=== PATIENT | male | born 1950 | race Caucasian/White ===

== ENCOUNTER 2022-02-16 12:29 | Inpatient (IN) ==
[2022-02-16 13:05] LABS: PO2 Arterial 68 mmHg (80-100)
[2022-02-16 13:08] LABS: PCO2 Arterial 84 mmHg (35-45)
[2022-02-16 13:11] LABS: Activated Partial Thrombo Time 38.6 seconds (26.0-38.0); INR 1.58 (0.86-1.15)
[2022-02-16 13:22] LABS: ABS Basophils 0.1 10^3/ul (0-0.2); ABS Eosinophils 0.1 10^3/ul (0-0.6); ABS Lymphocytes 1.5 10^3/ul (1.0-4.8); ABS Monocytes 0.6 10^3/ul (0-0.8); Eosinophil % 0.8 %; Hematocrit 37 % (42-52); Hemoglobin 11.5 g/dL (14.0-18.0); Mean Corpuscular HGB Conc 31 g/dL (31-36); Mean Corpuscular Hemoglobin 29 pg (27-31); Mean Corpuscular Volume 95 fL (80-94); Mean Platelet Volume 9.6 fL (7.4-10.4); Platelet Count 248 10^3/uL (150-450); Red Blood Count 3.96 10^6 /uL (4.18-5.48); Red Cell Distribution Width 18 % (10-15); White Blood Count 16.2 10^3/uL (3.5-10.8)
[2022-02-16 13:40] LABS: Albumin/Globulin Ratio 1.1 (1-3); C Reactive Protein 43.87 mg/L (<8.01); Calcium 8.8 mg/dL (8.6-10.3); Globulin 3.5 g/dL (2-4); Total Bilirubin 0.8 mg/dL (0.2-1.0); Total Protein 7.5 g/dL (6.4-8.9); eGFR CKD-EPI 54.9 (>60)
[2022-02-16] MEDS ORDERED: Iodixanol (CONTRAST) 320 MG/ML 100 ML SDV IV ONE (14:20)
[2022-02-16 14:23] LABS: High Sensitivity Troponin 1 Hr 51 pg/mL (<20)
[2022-02-16] MEDS ORDERED: Furosemide 40 mg/4 ml IV VIAL IV ONE (14:45)
[2022-02-16] MEDS ORDERED: Albuterol HFA INHALER 8 gm MDI INH PRN (16:07)
[2022-02-16] MEDS ORDERED: Albuterol 2.5mg/3 ml (0.083%) NEB.SOLN INH PRN (16:07)
[2022-02-16 17:02] LABS: Urine Appearance Cloudy; Urine Bilirubin Negative (Negative); Urine Blood 1+ (Negative); Urine Color Yellow; Urine Glucose Negative (Negative); Urine Ketones Negative (Negative); Urine Nitrite Negative (Negative); Urine Protein 2+(100 mg/dL) (Negative); Urine Specific Gravity 1.028 (1.002-1.030); Urine Urobilinogen Negative (Negative)
[2022-02-16 17:08] LABS: Urine Bacteria Absent (Absent); Urine Red Blood Cell 3+(>10/hpf) (Absent); Urine Squamous Epithelial Cell Present (Absent); Urine White Blood Cell 3+(>20/hpf) (Absent)
[2022-02-16] MEDS: cefTRIAXone 1 gm/50 mL D5W 1 GM/50 ML BAG IV SCH (18:08)
[2022-02-16] MEDS: Azithromycin 500 mg/250 ml NS 500 MG/250 ML BAG IVPB SCH (18:08)
[2022-02-16] MEDS ORDERED: Dextrose 50% Syringe 50 ml 25 GM/50 ML SYRINGE IV PUSH PRN (18:43)
[2022-02-16] MEDS: Mometasone/Formoter 200/5 MDI INH SCH (19:49)
[2022-02-16] MEDS ORDERED: Furosemide 40 mg/4 ml IV VIAL IV SCH (21:00)
[2022-02-17 04:05] LABS: Hematocrit 31 % (42-52); Hemoglobin 9.8 g/dL (14.0-18.0); Mean Corpuscular HGB Conc 32 g/dL (31-36); Mean Corpuscular Hemoglobin 29 pg (27-31); Mean Corpuscular Volume 92 fL (80-94); Mean Platelet Volume 8.7 fL (7.4-10.4); Platelet Count 191 10^3/uL (150-450); Red Blood Count 3.34 10^6 /uL (4.18-5.48); Red Cell Distribution Width 17 % (10-15); White Blood Count 11.6 10^3/uL (3.5-10.8)
[2022-02-17 04:42] LABS: Calcium 8.2 mg/dL (8.6-10.3); Magnesium 2.1 mg/dL (1.9-2.7); Potassium 4.3 mmol/L (3.5-5.0); eGFR CKD-EPI 65.5 (>60)
[2022-02-17] MEDS: Mometasone/Formoter 200/5 MDI INH SCH ×2 (07:37→18:56)
[2022-02-17] MEDS ORDERED: Perflutren Lipid Microsphere 3 ML VIAL ONE (08:37)
[2022-02-17] MEDS ORDERED: Furosemide 40 mg/4 ml IV VIAL IV ONE (11:17)
[2022-02-17] MEDS: cefTRIAXone 1 gm/50 mL D5W 1 GM/50 ML BAG IV SCH (17:38)
[2022-02-17] MEDS: Azithromycin 500 mg/250 ml NS 500 MG/250 ML BAG IVPB SCH (17:38)
[2022-02-18 05:53] LABS: Hematocrit 33 % (42-52); Hemoglobin 10.4 g/dL (14.0-18.0); Mean Corpuscular HGB Conc 32 g/dL (31-36); Mean Corpuscular Hemoglobin 30 pg (27-31); Mean Corpuscular Volume 94 fL (80-94); Mean Platelet Volume 9.1 fL (7.4-10.4); Platelet Count 208 10^3/uL (150-450); Red Blood Count 3.54 10^6 /uL (4.18-5.48); Red Cell Distribution Width 17 % (10-15); White Blood Count 10.4 10^3/uL (3.5-10.8)
[2022-02-18 06:45] LABS: Blood Urea Nitrogen 16 mg/dL (6-24); CO2 Carbon Dioxide 36 mmol/L (22-32); Calcium 7.6 mg/dL (8.6-10.3); Chloride 99 mmol/L (101-111); Glucose 93 mg/dL (70-100); Sodium 140 mmol/L (135-145); eGFR CKD-EPI 94.1 (>60)
[2022-02-18 07:30] LABS: Anion Gap 5 mmol/L (2-11)
[2022-02-18] MEDS: Mometasone/Formoter 200/5 MDI INH SCH (08:01)
[2022-02-18] MEDS ORDERED: Furosemide 40 mg/4 ml IV VIAL IV ONE (08:35)
[2022-02-18 17:45] LABS: Potassium Redraw 4.1 mmol/L (3.5-5.0)
[2022-02-18] MEDS: Azithromycin 500 mg/250 ml NS 500 MG/250 ML BAG IVPB SCH (17:55)
[2022-02-18] MEDS: cefTRIAXone 1 gm/50 mL D5W 1 GM/50 ML BAG IV SCH (17:58)
[2022-02-19 04:53] LABS: Hematocrit 34 % (42-52); Hemoglobin 10.8 g/dL (14.0-18.0); Mean Corpuscular HGB Conc 32 g/dL (31-36); Mean Corpuscular Hemoglobin 30 pg (27-31); Mean Corpuscular Volume 94 fL (80-94); Mean Platelet Volume 9.1 fL (7.4-10.4); Platelet Count 213 10^3/uL (150-450); Red Blood Count 3.64 10^6 /uL (4.18-5.48); Red Cell Distribution Width 18 % (10-15); White Blood Count 11.4 10^3/uL (3.5-10.8)
[2022-02-19 05:26] LABS: Calcium 8.5 mg/dL (8.6-10.3); Magnesium 2.1 mg/dL (1.9-2.7); Potassium 4.1 mmol/L (3.5-5.0); eGFR CKD-EPI 78.6 (>60)
[2022-02-19] MEDS ORDERED: medroxyPROGESTERone ACETATE 150 MG/ML VIAL IM ONE (09:04)
[2022-02-19] MEDS ORDERED: Furosemide 100 mg/10 ml IV VIAL IV ONE (09:36)
[2022-02-19] MEDS ORDERED: Furosemide 100 mg/10 ml IV VIAL ONE (10:00)
[2022-02-19] MEDS ORDERED: medroxyPROGESTERone ACETATE 150 MG/ML VIAL IM SCH (10:00)
[2022-02-19] MEDS ORDERED: Vancomycin per Pharmacy 1 EA NOTE FOLLOW UP PRN (10:04)
[2022-02-19] MEDS ORDERED: Vancomycin 2,000 MG in NS 0.9% 500 ml BAG 500 ML IVPB ONE (10:15)
[2022-02-19] MEDS: cefTRIAXone 1 gm/50 mL D5W 1 GM/50 ML BAG IV SCH (17:48)
[2022-02-19] MEDS ORDERED: Rocuronium 50 mg VIAL 10 mg/ml 5 ml VIAL (50 mg) ONE (18:14)
[2022-02-19] MEDS ORDERED: Succinylcholine 200 mg VIAL 20 mg/ml 10 ml VIAL (200 mg) ONE (18:14)
[2022-02-19] MEDS ORDERED: Norepinephrine 16MCG/ML BAGD5W 4,000 MCG/250 ML BAG IV ONE (18:20)
[2022-02-19] MEDS ORDERED: Midazolam 10 mg/10 ml VIAL 1 mg/ml 10 ml VIAL (10 mg) ONE (18:21)
[2022-02-19] MEDS ORDERED: Etomidate 40 mg/20 ml (2 MG/ML) 20 ml VIAL (40 mg) ONE (18:21)
[2022-02-19] MEDS ORDERED: fentaNYL 250 mcg/5 ml 50 MCG/ML 5 ml VIAL (250 MCG) ONE (18:21)
[2022-02-19] MEDS ORDERED: Propofol 10 mg/ml 100 ML BTL 100 ML ONE (18:29)
[2022-02-19] MEDS: Propofol 10 mg/ml 100 ML BTL 100 ML IV SCH ×4 (19:00→22:44)
[2022-02-19 19:32] LABS: PO2 Arterial 66 mmHg (80-100)
[2022-02-19] MEDS: Albuterol/Ipratropium NEB.SOL (2.5/0.5 MG) 3 ML NEB.SOLN INH SCH ×2 (19:36→22:53)
[2022-02-19] MEDS: Acetylcysteine INHALATION SOL 200 MG/ML NEB.SOLN 10 ML INH SCH ×2 (19:37→22:53)
[2022-02-19 19:53] LABS: PCO2 Arterial 91 mmHg (35-45)
[2022-02-19] MEDS: Pantoprazole VIAL 40 MG VIAL IV SCH (20:19)
[2022-02-19] MEDS: Chlorhexidine MOUTHWASH 0.12% 15 ML UDC TOPICAL SCH ×2 (20:19→22:28)
[2022-02-19] MEDS: Vancomycin 1,500 MG in NS 0.9% 250 ml 250 ML IVPB SCH (21:00)
[2022-02-20] MEDS: Propofol 10 mg/ml 100 ML BTL 100 ML IV SCH ×14 (00:30→23:50)
[2022-02-20] MEDS: Albuterol/Ipratropium NEB.SOL (2.5/0.5 MG) 3 ML NEB.SOLN INH SCH ×6 (02:48→23:02)
[2022-02-20] MEDS: Acetylcysteine INHALATION SOL 200 MG/ML NEB.SOLN 10 ML INH SCH ×6 (02:48→23:02)
[2022-02-20] MEDS: Chlorhexidine MOUTHWASH 0.12% 15 ML UDC TOPICAL SCH ×6 (03:57→23:49)
[2022-02-20 06:40] LABS: ABS Basophils 0.1 10^3/ul (0-0.2); ABS Eosinophils 0.1 10^3/ul (0-0.6); ABS Lymphocytes 1.2 10^3/ul (1.0-4.8); ABS Monocytes 0.6 10^3/ul (0-0.8); ABS Neutrophils 9.1 10^3/ul (1.5-7.7); Eosinophil % 1.1 %; Hematocrit 33 % (42-52); Hemoglobin 10.3 g/dL (14.0-18.0); Lymphocyte % 10.8 %; Mean Corpuscular HGB Conc 32 g/dL (31-36); Mean Corpuscular Hemoglobin 29 pg (27-31); Mean Corpuscular Volume 92 fL (80-94); Mean Platelet Volume 9.1 fL (7.4-10.4); Platelet Count 194 10^3/uL (150-450); Red Blood Count 3.53 10^6 /uL (4.18-5.48); Red Cell Distribution Width 17 % (10-15); White Blood Count 11.2 10^3/uL (3.5-10.8)
[2022-02-20 07:16] LABS: Calcium 8.6 mg/dL (8.6-10.3); Magnesium 1.7 mg/dL (1.9-2.7); Potassium 3.7 mmol/L (3.5-5.0); eGFR CKD-EPI 72.7 (>60)
[2022-02-20] MEDS ORDERED: Acetylcysteine INH SOL (RT) 200 MG/ML 4 ML VIAL INH ONE (10:21)
[2022-02-20] MEDS: Vancomycin 1,500 MG in NS 0.9% 250 ml 250 ML IVPB SCH ×2 (10:29→21:47)
[2022-02-20] MEDS ORDERED: Furosemide 100 mg/10 ml IV VIAL IV ONE (12:30)
[2022-02-20] MEDS: cefTRIAXone 1 gm/50 mL D5W 1 GM/50 ML BAG IV SCH (17:08)
[2022-02-20] MEDS: Pantoprazole VIAL 40 MG VIAL IV SCH (20:10)
[2022-02-21] MEDS: Propofol 10 mg/ml 100 ML BTL 100 ML IV SCH ×12 (01:42→23:00)
[2022-02-21] MEDS: Acetylcysteine INHALATION SOL 200 MG/ML NEB.SOLN 10 ML INH SCH ×6 (03:09→23:08)
[2022-02-21] MEDS: Albuterol/Ipratropium NEB.SOL (2.5/0.5 MG) 3 ML NEB.SOLN INH SCH ×6 (03:10→23:07)
[2022-02-21] MEDS: Chlorhexidine MOUTHWASH 0.12% 15 ML UDC TOPICAL SCH ×6 (03:41→23:15)
[2022-02-21 05:02] LABS: ABS Basophils 0.1 10^3/ul (0-0.2); ABS Eosinophils 0.2 10^3/ul (0-0.6); ABS Monocytes 0.6 10^3/ul (0-0.8); ABS Neutrophils 8.7 10^3/ul (1.5-7.7); Eosinophil % 1.6 %; Hematocrit 33 % (42-52); Hemoglobin 10.7 g/dL (14.0-18.0); Lymphocyte % 9.5 %; Mean Corpuscular HGB Conc 32 g/dL (31-36); Mean Corpuscular Hemoglobin 29 pg (27-31); Mean Corpuscular Volume 91 fL (80-94); Platelet Count 200 10^3/uL (150-450); Red Blood Count 3.63 10^6 /uL (4.18-5.48); Red Cell Distribution Width 18 % (10-15); White Blood Count 10.5 10^3/uL (3.5-10.8)
[2022-02-21 05:42] LABS: Calcium 8.2 mg/dL (8.6-10.3); Potassium 3.1 mmol/L (3.5-5.0); eGFR CKD-EPI 69.6 (>60)
[2022-02-21 08:00] LABS: Magnesium 1.8 mg/dL (1.9-2.7)
[2022-02-21] MEDS: KCL 20 MEQ/100 ML IVPREMIX 20 MEQ/100 ML BAG IV SCH ×3 (08:32→13:11)
[2022-02-21] MEDS ORDERED: Vancomycin Trough Check NOTE FOLLOW UP ONE (09:30)
[2022-02-21] MEDS ORDERED: Acetaminophen IV 1 GM/100ML 100 ML IV PRN (10:06)
[2022-02-21] MEDS: fentaNYL 100 mcg/2 ml 50 MCG/ML VIAL IV SLOW PU PRN ×3 (10:15→20:15)
[2022-02-21] MEDS: Vancomycin 1,500 MG in NS 0.9% 250 ml 250 ML IVPB SCH (11:32)
[2022-02-21] MEDS ORDERED: Furosemide 40 mg/4 ml IV VIAL IV ONE (13:04)
[2022-02-21] MEDS ORDERED: Furosemide 40 mg/4 ml IV VIAL IV SLOW PU ONE ×2 (17:52)
[2022-02-21] MEDS ORDERED: Magnesium Sulfate 2 gm BAG 2 GM/50 ML BAG IVPB ONE (18:25)
[2022-02-21] MEDS ORDERED: Furosemide 100 mg/10 ml IV 100 MG in NS 0.9% 100 ml BAG 90 ML IV SCH (19:00)
[2022-02-21 19:23] LABS: Calcium 8.5 mg/dL (8.6-10.3); Potassium 3.7 mmol/L (3.5-5.0); eGFR CKD-EPI 68.9 (>60)
[2022-02-21] MEDS: Pantoprazole VIAL 40 MG VIAL IV SCH (22:04)
[2022-02-21 23:01] LABS: Calcium 8.5 mg/dL (8.6-10.3); Potassium 3.5 mmol/L (3.5-5.0); eGFR CKD-EPI 66.8 (>60)
[2022-02-22] MEDS: Propofol 10 mg/ml 100 ML BTL 100 ML IV SCH ×9 (00:47→22:22)
[2022-02-22] MEDS ORDERED: Furosemide 100 mg/10 ml IV 100 MG in NS 0.9% 100 ml BAG 90 ML IV SCH (01:00)
[2022-02-22] MEDS ORDERED: Furosemide 100 mg/10 ml IV VIAL ONE (01:16)
[2022-02-22] MEDS: Furosemide 100 mg/10 ml IV 100 MG in NS 0.9% 100 ml BAG 90 ML IV SCH ×2 (01:33→07:44)
[2022-02-22 02:24] LABS: Calcium 8.7 mg/dL (8.6-10.3); Potassium 3.4 mmol/L (3.5-5.0); eGFR CKD-EPI 63.6 (>60)
[2022-02-22] MEDS: Chlorhexidine MOUTHWASH 0.12% 15 ML UDC TOPICAL SCH ×6 (03:10→23:39)
[2022-02-22] MEDS: KCL 20 MEQ/100 ML IVPREMIX 20 MEQ/100 ML BAG IV SCH ×4 (03:12→10:19)
[2022-02-22] MEDS: Albuterol/Ipratropium NEB.SOL (2.5/0.5 MG) 3 ML NEB.SOLN INH SCH ×6 (03:20→23:04)
[2022-02-22] MEDS: Acetylcysteine INHALATION SOL 200 MG/ML NEB.SOLN 10 ML INH SCH ×4 (03:20→15:55)
[2022-02-22 05:59] LABS: ABS Basophils 0.1 10^3/ul (0-0.2); ABS Eosinophils 0.4 10^3/ul (0-0.6); ABS Lymphocytes 0.8 10^3/ul (1.0-4.8); ABS Monocytes 0.9 10^3/ul (0-0.8); ABS Neutrophils 11.6 10^3/ul (1.5-7.7); Eosinophil % 2.8 %; Hematocrit 35 % (42-52); Hemoglobin 11.1 g/dL (14.0-18.0); Lymphocyte % 6.1 %; Mean Corpuscular HGB Conc 32 g/dL (31-36); Mean Corpuscular Hemoglobin 29 pg (27-31); Mean Corpuscular Volume 91 fL (80-94); Mean Platelet Volume 8.8 fL (7.4-10.4); Platelet Count 217 10^3/uL (150-450); Red Blood Count 3.84 10^6 /uL (4.18-5.48); Red Cell Distribution Width 18 % (10-15); White Blood Count 13.7 10^3/uL (3.5-10.8)
[2022-02-22 06:26] LABS: Calcium 8.6 mg/dL (8.6-10.3); Magnesium 2.1 mg/dL (1.9-2.7); Potassium 3.6 mmol/L (3.5-5.0); eGFR CKD-EPI 64.2 (>60)
[2022-02-22] MEDS ORDERED: NS 0.9% 500 ml BAG 500 ML IV SCH ×2 (09:18→10:00)
[2022-02-22] MEDS ORDERED: acetaZOLAMIDE IV 500 MG in NS 0.9% 50 ML 50 ML IVPB SCH (10:00)
[2022-02-22 11:28] LABS: Myoglobin 197.9 ng/mL (17.4-105.7)
[2022-02-22] MEDS ORDERED: acetaZOLAMIDE IV 500 MG in NS 0.9% 50 ML 50 ML IVPB ONE (11:32)
[2022-02-22 11:35] LABS: Calcium 8.4 mg/dL (8.6-10.3); Potassium 4.6 mmol/L (3.5-5.0); eGFR CKD-EPI 60.6 (>60)
[2022-02-22] MEDS ORDERED: Furosemide 40 mg/4 ml IV VIAL IV SLOW PU ONE ×2 (13:00→20:28)
[2022-02-22 13:46] LABS: PCO2 Arterial 65 mmHg (35-45); PO2 Arterial 67 mmHg (80-100)
[2022-02-22] MEDS ORDERED: Piperacillin/Tazobac ADVAN 3.375 GM in NS 0.9% 100 ml BAG 100 ML IV ONE (16:40)
[2022-02-22] MEDS ORDERED: Zosyn per Pharmacy NOTE FOLLOW UP SCH (17:00)
[2022-02-22] MEDS: Acetylcysteine INH SOL (RT) 200 MG/ML 4 ML VIAL INH SCH ×3 (18:29→23:05)
[2022-02-22 20:17] LABS: Calcium 8.4 mg/dL (8.6-10.3); Potassium 3.9 mmol/L (3.5-5.0); eGFR CKD-EPI 54.9 (>60)
[2022-02-22] MEDS: Pantoprazole VIAL 40 MG VIAL IV SCH (20:43)
[2022-02-22] MEDS: ZOSYN 3.375 GM Q8H per EXTENDED INFUSION IV SCH (20:45)
[2022-02-22] MEDS: Linezolid 600 MG IVPREMIX(*) 600 MG/300 ML BAG IVPB SCH (22:42)
[2022-02-23] MEDS: Albuterol/Ipratropium NEB.SOL (2.5/0.5 MG) 3 ML NEB.SOLN INH SCH ×2 (01:20→08:06)
[2022-02-23] MEDS: Acetylcysteine INH SOL (RT) 200 MG/ML 4 ML VIAL INH SCH ×2 (02:43→08:06)
[2022-02-23] MEDS: Propofol 10 mg/ml 100 ML BTL 100 ML IV SCH ×3 (03:09→08:45)
[2022-02-23] MEDS: Chlorhexidine MOUTHWASH 0.12% 15 ML UDC TOPICAL SCH ×6 (03:16→22:59)
[2022-02-23 04:36] LABS: ABS Basophils 0.1 10^3/ul (0-0.2); ABS Eosinophils 0.5 10^3/ul (0-0.6); ABS Lymphocytes 0.9 10^3/ul (1.0-4.8); ABS Monocytes 0.8 10^3/ul (0-0.8); ABS Neutrophils 13.5 10^3/ul (1.5-7.7); Eosinophil % 2.9 %; Hematocrit 37 % (42-52); Hemoglobin 11.5 g/dL (14.0-18.0); Lymphocyte % 5.9 %; Mean Corpuscular HGB Conc 31 g/dL (31-36); Mean Corpuscular Hemoglobin 29 pg (27-31); Mean Corpuscular Volume 92 fL (80-94); Mean Platelet Volume 9.3 fL (7.4-10.4); Nucleated Red Blood Cells % 0.1; Platelet Count 217 10^3/uL (150-450); Red Blood Count 4.03 10^6 /uL (4.18-5.48); Red Cell Distribution Width 19 % (10-15); White Blood Count 15.7 10^3/uL (3.5-10.8)
[2022-02-23 04:53] LABS: Calcium 8.7 mg/dL (8.6-10.3); Potassium 3.9 mmol/L (3.5-5.0)
[2022-02-23] MEDS: ZOSYN 3.375 GM Q8H per EXTENDED INFUSION IV SCH ×3 (04:53→20:58)
[2022-02-23 04:59] LABS: Myoglobin 1052.1 ng/mL (17.4-105.7)
[2022-02-23] MEDS ORDERED: KCL 20 MEQ/100 ML IVPREMIX 20 MEQ/100 ML BAG IV ONE ×2 (07:48→22:00)
[2022-02-23 07:51] LABS: Magnesium 2.1 mg/dL (1.9-2.7)
[2022-02-23] MEDS ORDERED: Acetylcysteine INH SOL (RT) 200 MG/ML 4 ML VIAL INH PRN (08:06)
[2022-02-23 08:41] LABS: PCO2 Arterial 65 mmHg (35-45)
[2022-02-23 08:46] LABS: PO2 Arterial 57 mmHg (80-100)
[2022-02-23] MEDS ORDERED: Furosemide 40 mg/4 ml IV VIAL IV SLOW PU ONE ×3 (08:48→23:59)
[2022-02-23] MEDS: Midazolam 50 MG VIAL IV DRIP 50 ML IV SCH (09:37)
[2022-02-23] MEDS: Linezolid 600 MG IVPREMIX(*) 600 MG/300 ML BAG IVPB SCH ×2 (10:30→22:17)
[2022-02-23] MEDS ORDERED: Lorazepam PYXIS KEY ONE (11:21)
[2022-02-23] MEDS ORDERED: LORazepam 2 mg VIAL 1 ml ONE (11:22)
[2022-02-23] MEDS ORDERED: fentaNYL 100 mcg/2 ml 50 MCG/ML VIAL ONE (11:22)
[2022-02-23] MEDS ORDERED: Rocuronium 50 mg VIAL 10 mg/ml 5 ml VIAL (50 mg) ONE (11:22)
[2022-02-23] MEDS ORDERED: Lorazepam PYXIS KEY PRN (12:05)
[2022-02-23] MEDS ORDERED: Rocuronium 50 mg VIAL 10 mg/ml 5 ml VIAL (50 mg) IV ONE (12:15)
[2022-02-23] MEDS ORDERED: LORazepam 2 mg VIAL 1 ml IV PUSH ONE (13:00)
[2022-02-23] MEDS ORDERED: fentaNYL 100 mcg/2 ml 50 MCG/ML VIAL IV ONE (13:00)
[2022-02-23 14:18] LABS: PCO2 Arterial 54 mmHg (35-45)
[2022-02-23 14:20] LABS: PO2 Arterial 56 mmHg (80-100)
[2022-02-23] MEDS ORDERED: Norepinephrine 16MCG/ML BAGD5W 4,000 MCG/250 ML BAG IV ONE (17:04)
[2022-02-23] MEDS ORDERED: Norepinephrine 16MCG/ML BAGD5W 4,000 MCG/250 ML BAG IV SCH (19:00)
[2022-02-23] MEDS ORDERED: PHENYLEPHRINE DRIP IVPREMIX 50 MG/250 ML BAG IV SCH (20:00)
[2022-02-23 20:06] LABS: Calcium 8.9 mg/dL (8.6-10.3); Magnesium 2.2 mg/dL (1.9-2.7); Potassium 3.8 mmol/L (3.5-5.0); eGFR CKD-EPI 36.3 (>60)
[2022-02-23] MEDS: Pantoprazole VIAL 40 MG VIAL IV SCH (20:58)
[2022-02-23 21:19] LABS: PCO2 Arterial 54 mmHg (35-45)
[2022-02-23 21:23] LABS: PO2 Arterial 54 mmHg (80-100)
[2022-02-23] MEDS ORDERED: methylPREDNISolone SOD SUCC 125 mg 2 ML VIAL IV ONE (22:20)
[2022-02-23 23:15] LABS: PCO2 Arterial 59 mmHg (35-45)
[2022-02-23 23:17] LABS: PO2 Arterial 57 mmHg (80-100)
[2022-02-24] MEDS: fentaNYL 100 mcg/2 ml 50 MCG/ML VIAL IV SLOW PU PRN (03:16)
[2022-02-24] MEDS: Chlorhexidine MOUTHWASH 0.12% 15 ML UDC TOPICAL SCH ×6 (03:16→21:44)
[2022-02-24] MEDS: ZOSYN 3.375 GM Q8H per EXTENDED INFUSION IV SCH ×3 (04:44→21:47)
[2022-02-24 04:55] LABS: ABS Basophils 0.2 10^3/ul (0-0.2); ABS Eosinophils 0.1 10^3/ul (0-0.6); ABS Lymphocytes 0.8 10^3/ul (1.0-4.8); ABS Monocytes 0.4 10^3/ul (0-0.8); ABS Neutrophils 19.6 10^3/ul (1.5-7.7); Eosinophil % 0.3 %; Hematocrit 38 % (42-52); Mean Corpuscular HGB Conc 32 g/dL (31-36); Mean Corpuscular Hemoglobin 29 pg (27-31); Mean Corpuscular Volume 90 fL (80-94); Mean Platelet Volume 9.2 fL (7.4-10.4); Nucleated Red Blood Cells % 0.1; Platelet Count 254 10^3/uL (150-450); Red Blood Count 4.19 10^6 /uL (4.18-5.48); Red Cell Distribution Width 18 % (10-15)
[2022-02-24 05:38] LABS: Magnesium 2.2 mg/dL (1.9-2.7); Phosphorus 5.8 mg/dL (2.5-5.0); Potassium 4.1 mmol/L (3.5-5.0); Uric Acid 6.4 mg/dL (4.4-7.6)
[2022-02-24 05:42] LABS: Myoglobin 1009.3 ng/mL (17.4-105.7)
[2022-02-24] MEDS: methylPREDNISolone SOD SUCC 40 mg/ml 1 ml VIAL IV SCH ×2 (08:48→22:30)
[2022-02-24] MEDS: Midazolam 50 MG VIAL IV DRIP 50 ML IV SCH (08:55)
[2022-02-24] MEDS ORDERED: Magnesium CITRATE LIQ 300 ML BTL PO ONE (09:41)
[2022-02-24] MEDS ORDERED: Artificial Tear OPHTH.OINT 3.5 GM BOTH EYES PRN (09:42)
[2022-02-24 09:49] LABS: PCO2 Arterial 61 mmHg (35-45); PO2 Arterial 125 mmHg (80-100)
[2022-02-24] MEDS: Linezolid 600 MG IVPREMIX(*) 600 MG/300 ML BAG IVPB SCH ×2 (10:02→22:31)
[2022-02-24] MEDS: Artificial Tear OPHTH.OINT 3.5 GM BOTH EYES SCH ×4 (10:32→22:31)
[2022-02-24] MEDS ORDERED: Azithromycin 500 mg/250 ml NS 500 MG/250 ML BAG IVPB ONE (11:00)
[2022-02-24] MEDS ORDERED: Polyethylene Glycol 3350 17 GM PACKET PO PRN (14:52)
[2022-02-24] MEDS ORDERED: Magnesium Hydroxide LIQ 30 ML UDC PO PRN (14:52)
[2022-02-24 16:04] LABS: PCO2 Arterial 63 mmHg (35-45); PO2 Arterial 69 mmHg (80-100)
[2022-02-24 16:29] LABS: Calcium 8.5 mg/dL (8.6-10.3); HDL Cholesterol 30.5 mg/dL; Magnesium 2.5 mg/dL (1.9-2.7); Potassium 3.5 mmol/L (3.5-5.0); eGFR CKD-EPI 37.5 (>60)
[2022-02-24] MEDS ORDERED: Alteplase (CATHFLO) 2 MG VIAL IV ONE (18:04)
[2022-02-24 20:26] LABS: PCO2 Arterial 67 mmHg (35-45)
[2022-02-24 20:29] LABS: PO2 Arterial 59 mmHg (80-100)
[2022-02-24] MEDS: Pantoprazole VIAL 40 MG VIAL IV SCH (21:46)
[2022-02-24] MEDS: Magnesium Hydroxide LIQ 30 ML UDC PO SCH (21:46)
[2022-02-25] MEDS: Midazolam 50 MG VIAL IV DRIP 50 ML IV SCH ×2 (02:23→12:54)
[2022-02-25] MEDS: Artificial Tear OPHTH.OINT 3.5 GM BOTH EYES SCH ×6 (03:12→20:58)
[2022-02-25] MEDS: Chlorhexidine MOUTHWASH 0.12% 15 ML UDC TOPICAL SCH ×5 (04:20→20:15)
[2022-02-25] MEDS: ZOSYN 3.375 GM Q8H per EXTENDED INFUSION IV SCH ×3 (04:23→20:56)
[2022-02-25 05:22] LABS: ABS Lymphocytes 0.7 10^3/ul (1.0-4.8); ABS Monocytes 0.6 10^3/ul (0-0.8); ABS Neutrophils 8.8 10^3/ul (1.5-7.7); Hematocrit 34 % (42-52); Lymphocyte % 6.8 %; Mean Corpuscular HGB Conc 32 g/dL (31-36); Mean Corpuscular Hemoglobin 29 pg (27-31); Mean Corpuscular Volume 91 fL (80-94); Mean Platelet Volume 9.5 fL (7.4-10.4); Platelet Count 194 10^3/uL (150-450); Red Blood Count 3.78 10^6 /uL (4.18-5.48); Red Cell Distribution Width 17 % (10-15)
[2022-02-25 06:36] LABS: Calcium 8.9 mg/dL (8.6-10.3); Potassium 3.4 mmol/L (3.5-5.0); eGFR CKD-EPI 39.7 (>60)
[2022-02-25 06:37] LABS: Myoglobin 534.6 ng/mL (17.4-105.7)
[2022-02-25] MEDS: Polyethylene Glycol 3350 17 GM PACKET PO SCH (08:25)
[2022-02-25] MEDS: Magnesium Hydroxide LIQ 30 ML UDC PO SCH ×2 (08:26→20:54)
[2022-02-25] MEDS: methylPREDNISolone SOD SUCC 40 mg/ml 1 ml VIAL IV SCH (08:26)
[2022-02-25] MEDS ORDERED: Furosemide 40 mg/4 ml IV VIAL IV SLOW PU ONE (08:51)
[2022-02-25] MEDS ORDERED: Insulin GLARGINE 100 un/ml 10 ml VIAL SUBCUT SCH (09:00)
[2022-02-25] MEDS: Linezolid 600 MG IVPREMIX(*) 600 MG/300 ML BAG IVPB SCH ×2 (09:39→21:58)
[2022-02-25 10:33] LABS: PCO2 Arterial 58 mmHg (35-45); PO2 Arterial 78 mmHg (80-100)
[2022-02-25] MEDS: Saline FLUSH-CENTRAL 10 ML SYRINGE CENT\\PICC SCH ×2 (10:50→23:00)
[2022-02-25] MEDS: Pantoprazole VIAL 40 MG VIAL IV SCH (20:54)
[2022-02-25 22:57] LABS: Calcium 9.1 mg/dL (8.6-10.3); Magnesium 2.7 mg/dL (1.9-2.7); Potassium 3.2 mmol/L (3.5-5.0); eGFR CKD-EPI 38.2 (>60)
[2022-02-25] MEDS ORDERED: Potassium Chloride LIQUID 20 MEQ/15 ML LIQUID PO ONE (23:02)
[2022-02-25] MEDS ORDERED: acetaZOLAMIDE IV 500 MG in NS 0.9% 50 ML 50 ML IVPB ONE (23:30)
[2022-02-26] MEDS: KCL 20 MEQ/100 ML IVPREMIX 20 MEQ/100 ML BAG IV SCH ×2 (01:03→04:05)
[2022-02-26] MEDS: Midazolam 50 MG VIAL IV DRIP 50 ML IV SCH ×2 (02:00→14:29)
[2022-02-26] MEDS: Artificial Tear OPHTH.OINT 3.5 GM BOTH EYES SCH ×6 (04:05→21:11)
[2022-02-26] MEDS: ZOSYN 3.375 GM Q8H per EXTENDED INFUSION IV SCH ×3 (04:40→20:28)
[2022-02-26] MEDS: Chlorhexidine MOUTHWASH 0.12% 15 ML UDC TOPICAL SCH ×7 (04:40→23:49)
[2022-02-26 06:53] LABS: ABS Lymphocytes 0.7 10^3/ul (1.0-4.8); ABS Monocytes 0.7 10^3/ul (0-0.8); ABS Neutrophils 9.1 10^3/ul (1.5-7.7); Hematocrit 35 % (42-52); Lymphocyte % 6.7 %; Mean Corpuscular HGB Conc 32 g/dL (31-36); Mean Corpuscular Hemoglobin 29 pg (27-31); Mean Corpuscular Volume 91 fL (80-94); Mean Platelet Volume 9.8 fL (7.4-10.4); Platelet Count 191 10^3/uL (150-450); Red Blood Count 3.79 10^6 /uL (4.18-5.48); Red Cell Distribution Width 18 % (10-15); White Blood Count 10.5 10^3/uL (3.5-10.8)
[2022-02-26 07:08] LABS: Calcium 9.1 mg/dL (8.6-10.3); Magnesium 2.8 mg/dL (1.9-2.7); Phosphorus 3.2 mg/dL (2.5-5.0); Potassium 3.7 mmol/L (3.5-5.0); eGFR CKD-EPI 38.7 (>60)
[2022-02-26 07:14] LABS: Myoglobin 334.5 ng/mL (17.4-105.7)
[2022-02-26] MEDS: methylPREDNISolone SOD SUCC 40 mg/ml 1 ml VIAL IV SCH (08:33)
[2022-02-26] MEDS: Insulin GLARGINE 100 un/ml 10 ml VIAL SUBCUT SCH (08:34)
[2022-02-26] MEDS: Magnesium Hydroxide LIQ 30 ML UDC PO SCH ×2 (08:54→23:31)
[2022-02-26] MEDS: Polyethylene Glycol 3350 17 GM PACKET PO SCH (08:54)
[2022-02-26] MEDS ORDERED: Furosemide 40 mg/4 ml IV VIAL IV SLOW PU ONE (09:10)
[2022-02-26] MEDS ORDERED: Linezolid 600 MG IVPREMIX(*) 600 MG/300 ML BAG IVPB SCH (10:00)
[2022-02-26] MEDS ORDERED: Furosemide 100 mg/10 ml IV VIAL ONE (10:18)
[2022-02-26] MEDS ORDERED: Furosemide 100 mg/10 ml IV 100 MG in NS 0.9% 100 ml BAG 90 ML IV SCH (10:30)
[2022-02-26 11:10] LABS: PCO2 Arterial 27 mmHg (35-45); PO2 Arterial 69 mmHg (80-100)
[2022-02-26] MEDS: Saline FLUSH-CENTRAL 10 ML SYRINGE CENT\\PICC SCH ×2 (12:23→23:01)
[2022-02-26 14:53] LABS: PCO2 Arterial 28 mmHg (35-45); PO2 Arterial 78 mmHg (80-100)
[2022-02-26 16:04] LABS: Potassium 3.8 mmol/L (3.5-5.0)
[2022-02-26 16:21] LABS: Magnesium 2.8 mg/dL (1.9-2.7)
[2022-02-26] MEDS: Pantoprazole VIAL 40 MG VIAL IV SCH (20:29)
[2022-02-27] MEDS: Chlorhexidine MOUTHWASH 0.12% 15 ML UDC TOPICAL SCH ×6 (02:43→21:50)
[2022-02-27] MEDS: Artificial Tear OPHTH.OINT 3.5 GM BOTH EYES SCH ×6 (02:44→20:39)
[2022-02-27] MEDS: fentaNYL 100 mcg/2 ml 50 MCG/ML VIAL IV SLOW PU PRN ×2 (03:36→07:58)
[2022-02-27] MEDS: ZOSYN 3.375 GM Q8H per EXTENDED INFUSION IV SCH ×3 (05:07→20:39)
[2022-02-27 05:34] LABS: PCO2 Arterial 60 mmHg (35-45); PO2 Arterial 64 mmHg (80-100)
[2022-02-27 05:42] LABS: ABS Eosinophils 0.1 10^3/ul (0-0.6); ABS Monocytes 0.8 10^3/ul (0-0.8); ABS Neutrophils 9.3 10^3/ul (1.5-7.7); Eosinophil % 0.6 %; Hematocrit 37 % (42-52); Hemoglobin 11.7 g/dL (14.0-18.0); Lymphocyte % 9.2 %; Mean Corpuscular HGB Conc 32 g/dL (31-36); Mean Corpuscular Hemoglobin 29 pg (27-31); Mean Corpuscular Volume 90 fL (80-94); Mean Platelet Volume 9.8 fL (7.4-10.4); Platelet Count 218 10^3/uL (150-450); Red Blood Count 4.11 10^6 /uL (4.18-5.48); Red Cell Distribution Width 17 % (10-15); White Blood Count 11.2 10^3/uL (3.5-10.8)
[2022-02-27 06:17] LABS: Calcium 9.6 mg/dL (8.6-10.3); Magnesium 2.8 mg/dL (1.9-2.7); Phosphorus 3.8 mg/dL (2.5-5.0); Potassium 3.4 mmol/L (3.5-5.0); eGFR CKD-EPI 35.5 (>60)
[2022-02-27 06:19] LABS: Myoglobin 201.5 ng/mL (17.4-105.7)
[2022-02-27] MEDS: methylPREDNISolone SOD SUCC 40 mg/ml 1 ml VIAL IV SCH (07:59)
[2022-02-27] MEDS: Magnesium Hydroxide LIQ 30 ML UDC PO SCH ×2 (08:00→20:39)
[2022-02-27] MEDS: Polyethylene Glycol 3350 17 GM PACKET PO SCH (08:00)
[2022-02-27] MEDS: Insulin GLARGINE 100 un/ml 10 ml VIAL SUBCUT SCH (08:04)
[2022-02-27 08:39] LABS: PCO2 Arterial 61 mmHg (35-45); PO2 Arterial 61 mmHg (80-100)
[2022-02-27] MEDS: Saline FLUSH-CENTRAL 10 ML SYRINGE CENT\\PICC SCH ×2 (10:25→21:49)
[2022-02-27] MEDS ORDERED: KCL 20 MEQ/100 ML IVPREMIX 20 MEQ/100 ML BAG IV ONE (11:05)
[2022-02-27] MEDS ORDERED: Potassium Chloride LIQUID 20 MEQ/15 ML LIQUID PO ONE (11:05)
[2022-02-27] MEDS: KCL premix 10 MEQ/50 ML x 2 BAGS IV SCH ×2 (12:11→13:56)
[2022-02-27] MEDS: Midazolam 50 MG VIAL IV DRIP 50 ML IV SCH (12:26)
[2022-02-27] MEDS ORDERED: acetaZOLAMIDE IV 500 MG in NS 0.9% 50 ML 50 ML IVPB ONE (12:30)
[2022-02-27] MEDS ORDERED: Furosemide 40 mg/4 ml IV VIAL IV ONE (15:30)
[2022-02-27] MEDS: Pantoprazole VIAL 40 MG VIAL IV SCH (20:38)
[2022-02-27 20:45] LABS: Calcium 9.6 mg/dL (8.6-10.3); Potassium 3.8 mmol/L (3.5-5.0); eGFR CKD-EPI 35.5 (>60)
[2022-02-28] MEDS: Midazolam 50 MG VIAL IV DRIP 50 ML IV SCH ×2 (00:09→20:18)
[2022-02-28] MEDS: Artificial Tear OPHTH.OINT 3.5 GM BOTH EYES SCH ×6 (00:15→23:30)
[2022-02-28] MEDS: Chlorhexidine MOUTHWASH 0.12% 15 ML UDC TOPICAL SCH ×5 (01:31→17:55)
[2022-02-28] MEDS: ZOSYN 3.375 GM Q8H per EXTENDED INFUSION IV SCH ×3 (04:49→20:53)
[2022-02-28 05:05] LABS: ABS Eosinophils 0.2 10^3/ul (0-0.6); ABS Lymphocytes 1.6 10^3/ul (1.0-4.8); ABS Monocytes 0.9 10^3/ul (0-0.8); ABS Neutrophils 9.6 10^3/ul (1.5-7.7); Eosinophil % 1.3 %; Hematocrit 38 % (42-52); Lymphocyte % 13.1 %; Mean Corpuscular HGB Conc 31 g/dL (31-36); Mean Corpuscular Hemoglobin 28 pg (27-31); Mean Corpuscular Volume 90 fL (80-94); Mean Platelet Volume 9.7 fL (7.4-10.4); Platelet Count 233 10^3/uL (150-450); Red Blood Count 4.24 10^6 /uL (4.18-5.48); Red Cell Distribution Width 18 % (10-15); White Blood Count 12.4 10^3/uL (3.5-10.8)
[2022-02-28 05:51] LABS: Albumin 3.4 g/dL (3.2-5.2); Calcium 9.9 mg/dL (8.6-10.3); Globulin 3.3 g/dL (2-4); Magnesium 2.6 mg/dL (1.9-2.7); Phosphorus 3.8 mg/dL (2.5-5.0); Potassium 3.3 mmol/L (3.5-5.0); Total Protein 6.7 g/dL (6.4-8.9); eGFR CKD-EPI 36.8 (>60)
[2022-02-28 05:54] LABS: Myoglobin 160.5 ng/mL (17.4-105.7)
[2022-02-28 06:12] LABS: PCO2 Arterial 58 mmHg (35-45)
[2022-02-28 06:27] LABS: PO2 Arterial 57 mmHg (80-100)
[2022-02-28] MEDS ORDERED: Potassium Chloride LIQUID 20 MEQ/15 ML LIQUID PO ONE ×3 (07:10→14:00)
[2022-02-28] MEDS: Insulin GLARGINE 100 un/ml 10 ml VIAL SUBCUT SCH (09:02)
[2022-02-28] MEDS: methylPREDNISolone SOD SUCC 40 mg/ml 1 ml VIAL IV SCH (09:03)
[2022-02-28] MEDS: Polyethylene Glycol 3350 17 GM PACKET PO SCH (09:03)
[2022-02-28] MEDS: Magnesium Hydroxide LIQ 30 ML UDC PO SCH ×2 (09:03→20:55)
[2022-02-28 09:51] LABS: PCO2 Arterial 57 mmHg (35-45); PO2 Arterial 64 mmHg (80-100)
[2022-02-28] MEDS: Saline FLUSH-CENTRAL 10 ML SYRINGE CENT\\PICC SCH (11:50)
[2022-02-28] MEDS ORDERED: Furosemide 40 mg/4 ml IV VIAL IV SLOW PU ONE (13:00)
[2022-02-28] MEDS: Pantoprazole VIAL 40 MG VIAL IV SCH (20:42)
[2022-03-01] MEDS: Saline FLUSH-CENTRAL 10 ML SYRINGE CENT\\PICC SCH ×3 (00:17→23:12)
[2022-03-01] MEDS: Chlorhexidine MOUTHWASH 0.12% 15 ML UDC TOPICAL SCH ×7 (00:17→23:12)
[2022-03-01] MEDS: Artificial Tear OPHTH.OINT 3.5 GM BOTH EYES SCH ×6 (03:10→23:12)
[2022-03-01] MEDS: Midazolam 50 MG VIAL IV DRIP 50 ML IV SCH ×3 (05:58→22:16)
[2022-03-01] MEDS: ZOSYN 3.375 GM Q8H per EXTENDED INFUSION IV SCH ×3 (06:17→20:10)
[2022-03-01 07:03] LABS: ABS Eosinophils 0.1 10^3/ul (0-0.6); ABS Lymphocytes 1.8 10^3/ul (1.0-4.8); ABS Monocytes 0.7 10^3/ul (0-0.8); ABS Neutrophils 9.8 10^3/ul (1.5-7.7); Eosinophil % 0.9 %; Hematocrit 39 % (42-52); Hemoglobin 12.5 g/dL (14.0-18.0); Lymphocyte % 14.2 %; Mean Corpuscular HGB Conc 32 g/dL (31-36); Mean Corpuscular Hemoglobin 29 pg (27-31); Mean Corpuscular Volume 90 fL (80-94); Mean Platelet Volume 10.4 fL (7.4-10.4); Platelet Count 237 10^3/uL (150-450); Red Blood Count 4.29 10^6 /uL (4.18-5.48); Red Cell Distribution Width 18 % (10-15); White Blood Count 12.4 10^3/uL (3.5-10.8)
[2022-03-01 07:23] LABS: Albumin 3.6 g/dL (3.2-5.2); Albumin/Globulin Ratio 1.1 (1-3); Globulin 3.4 g/dL (2-4); Potassium 3.5 mmol/L (3.5-5.0); eGFR CKD-EPI 38.2 (>60)
[2022-03-01 07:25] LABS: Myoglobin 166.5 ng/mL (17.4-105.7)
[2022-03-01] MEDS ORDERED: KCL 20 MEQ/100 ML IVPREMIX 20 MEQ/100 ML BAG IV SCH (08:00)
[2022-03-01 08:18] LABS: Magnesium 2.7 mg/dL (1.9-2.7)
[2022-03-01 08:52] LABS: PCO2 Arterial 59 mmHg (35-45); PO2 Arterial 67 mmHg (80-100)
[2022-03-01] MEDS: Insulin GLARGINE 100 un/ml 10 ml VIAL SUBCUT SCH (09:06)
[2022-03-01] MEDS: KCL premix 10 MEQ/50 ML x 4 RUNS IV SCH ×4 (09:06→12:47)
[2022-03-01] MEDS: methylPREDNISolone SOD SUCC 40 mg/ml 1 ml VIAL IV SCH (09:06)
[2022-03-01] MEDS: Magnesium Hydroxide LIQ 30 ML UDC PO SCH ×2 (09:19→20:10)
[2022-03-01] MEDS: Polyethylene Glycol 3350 17 GM PACKET PO SCH (09:19)
[2022-03-01] MEDS: Pantoprazole VIAL 40 MG VIAL IV SCH (20:11)
[2022-03-02] MEDS: Artificial Tear OPHTH.OINT 3.5 GM BOTH EYES SCH ×6 (02:28→21:15)
[2022-03-02] MEDS: Chlorhexidine MOUTHWASH 0.12% 15 ML UDC TOPICAL SCH ×5 (02:28→18:11)
[2022-03-02 04:48] LABS: ABS Basophils 0.1 10^3/ul (0-0.2); ABS Eosinophils 0.1 10^3/ul (0-0.6); ABS Lymphocytes 1.8 10^3/ul (1.0-4.8); ABS Monocytes 0.9 10^3/ul (0-0.8); ABS Neutrophils 12.1 10^3/ul (1.5-7.7); Eosinophil % 0.9 %; Hematocrit 40 % (42-52); Hemoglobin 12.7 g/dL (14.0-18.0); Mean Corpuscular HGB Conc 32 g/dL (31-36); Mean Corpuscular Hemoglobin 29 pg (27-31); Mean Corpuscular Volume 90 fL (80-94); Mean Platelet Volume 10.2 fL (7.4-10.4); Platelet Count 252 10^3/uL (150-450); Red Blood Count 4.45 10^6 /uL (4.18-5.48); Red Cell Distribution Width 17 % (10-15)
[2022-03-02] MEDS: ZOSYN 3.375 GM Q8H per EXTENDED INFUSION IV SCH ×3 (05:15→21:15)
[2022-03-02 05:21] LABS: Albumin 3.5 g/dL (3.2-5.2); Calcium 9.6 mg/dL (8.6-10.3); Globulin 3.4 g/dL (2-4); Magnesium 2.4 mg/dL (1.9-2.7); Phosphorus 3.8 mg/dL (2.5-5.0); Potassium 3.6 mmol/L (3.5-5.0); Total Bilirubin 0.9 mg/dL (0.2-1.0); Total Protein 6.9 g/dL (6.4-8.9)
[2022-03-02] MEDS ORDERED: Potassium Chloride LIQUID 20 MEQ/15 ML LIQUID PO ONE (07:35)
[2022-03-02] MEDS: Magnesium Hydroxide LIQ 30 ML UDC PO SCH ×2 (09:23→21:15)
[2022-03-02] MEDS: methylPREDNISolone SOD SUCC 40 mg/ml 1 ml VIAL IV SCH (09:24)
[2022-03-02] MEDS: Polyethylene Glycol 3350 17 GM PACKET PO SCH (09:24)
[2022-03-02] MEDS: Insulin GLARGINE 100 un/ml 10 ml VIAL SUBCUT SCH (09:47)
[2022-03-02 10:26] LABS: PCO2 Arterial 54 mmHg (35-45); PO2 Arterial 80 mmHg (80-100)
[2022-03-02] MEDS ORDERED: Furosemide 40 mg/4 ml IV VIAL IV SLOW PU ONE (10:28)
[2022-03-02] MEDS: Saline FLUSH-CENTRAL 10 ML SYRINGE CENT\\PICC SCH ×2 (10:59→23:27)
[2022-03-02] MEDS ORDERED: NS 0.9% 100 ml BAG 100 ML ONE (14:16)
[2022-03-02] MEDS: Linezolid 600 MG IVPREMIX(*) 600 MG/300 ML BAG IVPB SCH (19:22)
[2022-03-02] MEDS: Pantoprazole VIAL 40 MG VIAL IV SCH (21:15)
[2022-03-03] MEDS: Chlorhexidine MOUTHWASH 0.12% 15 ML UDC TOPICAL SCH ×7 (00:53→23:27)
[2022-03-03] MEDS: Artificial Tear OPHTH.OINT 3.5 GM BOTH EYES SCH ×6 (02:50→20:57)
[2022-03-03] MEDS: Midazolam 50 MG VIAL IV DRIP 50 ML IV SCH ×3 (02:50→20:42)
[2022-03-03] MEDS: ZOSYN 3.375 GM Q8H per EXTENDED INFUSION IV SCH ×3 (04:49→21:02)
[2022-03-03 05:11] LABS: ABS Basophils 0.1 10^3/ul (0-0.2); ABS Eosinophils 0.3 10^3/ul (0-0.6); ABS Lymphocytes 2.1 10^3/ul (1.0-4.8); ABS Monocytes 1.1 10^3/ul (0-0.8); Eosinophil % 1.5 %; Hematocrit 43 % (42-52); Hemoglobin 13.5 g/dL (14.0-18.0); Lymphocyte % 10.7 %; Mean Corpuscular HGB Conc 31 g/dL (31-36); Mean Corpuscular Hemoglobin 28 pg (27-31); Mean Corpuscular Volume 90 fL (80-94); Mean Platelet Volume 9.9 fL (7.4-10.4); Nucleated Red Blood Cells % 0.1; Platelet Count 249 10^3/uL (150-450); Red Blood Count 4.79 10^6 /uL (4.18-5.48); Red Cell Distribution Width 17 % (10-15); White Blood Count 19.6 10^3/uL (3.5-10.8)
[2022-03-03 05:51] LABS: Albumin 3.8 g/dL (3.2-5.2); Albumin/Globulin Ratio 0.9 (1-3); Calcium 10.5 mg/dL (8.6-10.3); Globulin 4.1 g/dL (2-4); Magnesium 2.7 mg/dL (1.9-2.7); Potassium 3.3 mmol/L (3.5-5.0); Total Bilirubin 1.1 mg/dL (0.2-1.0); Total Protein 7.9 g/dL (6.4-8.9); eGFR CKD-EPI 37.7 (>60)
[2022-03-03] MEDS: Linezolid 600 MG IVPREMIX(*) 600 MG/300 ML BAG IVPB SCH ×2 (06:02→17:55)
[2022-03-03] MEDS ORDERED: Potassium Chloride LIQUID 20 MEQ/15 ML LIQUID PO ONE (06:05)
[2022-03-03] MEDS: methylPREDNISolone SOD SUCC 40 mg/ml 1 ml VIAL IV SCH (09:00)
[2022-03-03] MEDS: Insulin GLARGINE 100 un/ml 10 ml VIAL SUBCUT SCH (09:01)
[2022-03-03] MEDS ORDERED: Polyethylene Glycol 3350 17 GM PACKET PO PRN (10:27)
[2022-03-03] MEDS: Magnesium Hydroxide LIQ 30 ML UDC PO SCH (10:40)
[2022-03-03] MEDS: Saline FLUSH-CENTRAL 10 ML SYRINGE CENT\\PICC SCH ×2 (11:53→23:27)
[2022-03-03] MEDS: Polyethylene Glycol 3350 17 GM PACKET PO SCH (12:20)
[2022-03-03 18:13] LABS: PCO2 Arterial 51 mmHg (35-45); PO2 Arterial 82 mmHg (80-100)
[2022-03-03] MEDS: Pantoprazole VIAL 40 MG VIAL IV SCH (20:58)
[2022-03-04 02:54] LABS: Hepatitis B Surface Antigen Nonreactive (Nonreactive)
[2022-03-04 02:59] LABS: Hepatitis A Ab IgM Negative (Negative)
[2022-03-04 03:00] LABS: Hepatitis B Core IgM Nonreactive (Nonreactive)
[2022-03-04 03:12] LABS: Hepatitis C Antibody Negative (Negative)
[2022-03-04] MEDS: Artificial Tear OPHTH.OINT 3.5 GM BOTH EYES SCH ×6 (04:54→22:23)
[2022-03-04] MEDS: Chlorhexidine MOUTHWASH 0.12% 15 ML UDC TOPICAL SCH ×6 (04:54→22:23)
[2022-03-04] MEDS: ZOSYN 3.375 GM Q8H per EXTENDED INFUSION IV SCH ×3 (05:28→20:46)
[2022-03-04 05:49] LABS: ABS Eosinophils 0.1 10^3/ul (0-0.6); ABS Lymphocytes 1.9 10^3/ul (1.0-4.8); ABS Monocytes 1.2 10^3/ul (0-0.8); ABS Neutrophils 13.4 10^3/ul (1.5-7.7); Eosinophil % 0.5 %; Hematocrit 40 % (42-52); Lymphocyte % 11.6 %; Mean Corpuscular HGB Conc 32 g/dL (31-36); Mean Corpuscular Hemoglobin 29 pg (27-31); Mean Corpuscular Volume 90 fL (80-94); Platelet Count 230 10^3/uL (150-450); Red Blood Count 4.46 10^6 /uL (4.18-5.48); Red Cell Distribution Width 17 % (10-15); White Blood Count 16.7 10^3/uL (3.5-10.8)
[2022-03-04 06:34] LABS: Albumin 3.5 g/dL (3.2-5.2); Albumin/Globulin Ratio 0.9 (1-3); Calcium 9.6 mg/dL (8.6-10.3); Globulin 3.7 g/dL (2-4); Magnesium 2.3 mg/dL (1.9-2.7); Potassium 3.2 mmol/L (3.5-5.0); Total Bilirubin 0.9 mg/dL (0.2-1.0); Total Protein 7.2 g/dL (6.4-8.9); eGFR CKD-EPI 51.3 (>60)
[2022-03-04] MEDS: Linezolid 600 MG IVPREMIX(*) 600 MG/300 ML BAG IVPB SCH ×2 (06:40→18:12)
[2022-03-04] MEDS ORDERED: Potassium Chloride LIQUID 20 MEQ/15 ML LIQUID PO ONE ×3 (08:00→13:00)
[2022-03-04] MEDS: Insulin GLARGINE 100 un/ml 10 ml VIAL SUBCUT SCH (09:36)
[2022-03-04] MEDS: methylPREDNISolone SOD SUCC 40 mg/ml 1 ml VIAL IV SCH (09:36)
[2022-03-04] MEDS ORDERED: Furosemide 40 mg/4 ml IV VIAL IV SLOW PU ONE (10:16)
[2022-03-04] MEDS ORDERED: Alteplase (CATHFLO) 2 MG VIAL IV ONE (10:17)
[2022-03-04] MEDS: Saline FLUSH-CENTRAL 10 ML SYRINGE CENT\\PICC SCH ×2 (11:57→23:44)
[2022-03-04] MEDS: Midazolam 50 MG VIAL IV DRIP 50 ML IV SCH (18:20)
[2022-03-04 18:36] LABS: Calcium 10.5 mg/dL (8.6-10.3); Potassium 3.9 mmol/L (3.5-5.0); eGFR CKD-EPI 41.1 (>60)
[2022-03-04] MEDS: Pantoprazole VIAL 40 MG VIAL IV SCH (20:31)
[2022-03-05] MEDS: Artificial Tear OPHTH.OINT 3.5 GM BOTH EYES SCH ×6 (03:18→21:55)
[2022-03-05] MEDS: Chlorhexidine MOUTHWASH 0.12% 15 ML UDC TOPICAL SCH ×6 (03:18→21:55)
[2022-03-05 04:59] LABS: ABS Basophils 0.1 10^3/ul (0-0.2); ABS Lymphocytes 2.1 10^3/ul (1.0-4.8); ABS Monocytes 1.2 10^3/ul (0-0.8); ABS Neutrophils 13.6 10^3/ul (1.5-7.7); Eosinophil % 0.1 %; Hematocrit 43 % (42-52); Lymphocyte % 12.6 %; Mean Corpuscular HGB Conc 33 g/dL (31-36); Mean Corpuscular Hemoglobin 29 pg (27-31); Mean Corpuscular Volume 89 fL (80-94); Nucleated Red Blood Cells % 0.1; Platelet Count 254 10^3/uL (150-450); Red Blood Count 4.84 10^6 /uL (4.18-5.48); Red Cell Distribution Width 18 % (10-15); White Blood Count 17.1 10^3/uL (3.5-10.8)
[2022-03-05] MEDS: ZOSYN 3.375 GM Q8H per EXTENDED INFUSION IV SCH ×3 (05:22→22:25)
[2022-03-05 05:38] LABS: Albumin 3.9 g/dL (3.2-5.2); Calcium 10.8 mg/dL (8.6-10.3); Globulin 4.1 g/dL (2-4); Magnesium 2.4 mg/dL (1.9-2.7); Phosphorus 3.7 mg/dL (2.5-5.0); Potassium 3.3 mmol/L (3.5-5.0); Total Bilirubin 0.9 mg/dL (0.2-1.0); eGFR CKD-EPI 45.7 (>60)
[2022-03-05] MEDS: Linezolid 600 MG IVPREMIX(*) 600 MG/300 ML BAG IVPB SCH ×2 (06:02→17:47)
[2022-03-05] MEDS: KCL 20 MEQ/100 ML IVPREMIX 20 MEQ/100 ML BAG IV SCH ×2 (07:12→09:22)
[2022-03-05] MEDS: Insulin GLARGINE 100 un/ml 10 ml VIAL SUBCUT SCH (09:22)
[2022-03-05] MEDS: methylPREDNISolone SOD SUCC 40 mg/ml 1 ml VIAL IV SCH (09:22)
[2022-03-05] MEDS: Saline FLUSH-CENTRAL 10 ML SYRINGE CENT\\PICC SCH (10:43)
[2022-03-05] MEDS ORDERED: Furosemide 40 mg/4 ml IV VIAL IV SLOW PU ONE (11:15)
[2022-03-05] MEDS: Midazolam 50 MG VIAL IV DRIP 50 ML IV SCH (15:42)
[2022-03-05] MEDS: Pantoprazole VIAL 40 MG VIAL IV SCH (21:55)
[2022-03-06] MEDS: Saline FLUSH-CENTRAL 10 ML SYRINGE CENT\\PICC SCH ×2 (00:15→09:59)
[2022-03-06] MEDS: Chlorhexidine MOUTHWASH 0.12% 15 ML UDC TOPICAL SCH ×6 (03:05→21:59)
[2022-03-06] MEDS: Artificial Tear OPHTH.OINT 3.5 GM BOTH EYES SCH ×6 (03:05→22:13)
[2022-03-06 04:33] LABS: ABS Basophils 0.1 10^3/ul (0-0.2); ABS Lymphocytes 2.7 10^3/ul (1.0-4.8); ABS Monocytes 1.4 10^3/ul (0-0.8); Eosinophil % 0.3 %; Hematocrit 46 % (42-52); Hemoglobin 14.3 g/dL (14.0-18.0); Lymphocyte % 14.9 %; Mean Corpuscular HGB Conc 32 g/dL (31-36); Mean Corpuscular Hemoglobin 28 pg (27-31); Mean Corpuscular Volume 90 fL (80-94); Mean Platelet Volume 10.5 fL (7.4-10.4); Platelet Count 268 10^3/uL (150-450); Red Blood Count 5.04 10^6 /uL (4.18-5.48); Red Cell Distribution Width 18 % (10-15); White Blood Count 18.2 10^3/uL (3.5-10.8)
[2022-03-06 05:43] LABS: Calcium 10.9 mg/dL (8.6-10.3); Magnesium 2.5 mg/dL (1.9-2.7); Phosphorus 4.1 mg/dL (2.5-5.0); Potassium 3.1 mmol/L (3.5-5.0); eGFR CKD-EPI 41.6 (>60)
[2022-03-06] MEDS: ZOSYN 3.375 GM Q8H per EXTENDED INFUSION IV SCH ×3 (05:46→21:59)
[2022-03-06] MEDS: Heparin 5000 UNITS/ML 1 mL VIAL SUBCUT SCH ×3 (05:47→21:59)
[2022-03-06] MEDS: Linezolid 600 MG IVPREMIX(*) 600 MG/300 ML BAG IVPB SCH ×2 (05:48→16:30)
[2022-03-06] MEDS ORDERED: Potassium Chloride LIQUID 20 MEQ/15 ML LIQUID PO ONE (07:30)
[2022-03-06] MEDS ORDERED: KCL 20 MEQ/100 ML IVPREMIX 20 MEQ/100 ML BAG IV SCH (08:00)
[2022-03-06] MEDS: KCL premix 10 MEQ/50 ML x 6 RUNS IV SCH ×6 (08:16→14:09)
[2022-03-06] MEDS: Insulin GLARGINE 100 un/ml 10 ml VIAL SUBCUT SCH (08:16)
[2022-03-06] MEDS: methylPREDNISolone SOD SUCC 40 mg/ml 1 ml VIAL IV SCH (08:16)
[2022-03-06] MEDS ORDERED: Dexmedetomidine 1,000 MCG in NS 0.9% 250 ml 240 ML IV SCH (14:30)
[2022-03-06 18:18] LABS: Calcium 9.9 mg/dL (8.6-10.3); Potassium 3.8 mmol/L (3.5-5.0); eGFR CKD-EPI 45.3 (>60)
[2022-03-06] MEDS: Pantoprazole VIAL 40 MG VIAL IV SCH (21:44)
[2022-03-07] MEDS: Artificial Tear OPHTH.OINT 3.5 GM BOTH EYES SCH ×6 (01:19→22:28)
[2022-03-07] MEDS: Saline FLUSH-CENTRAL 10 ML SYRINGE CENT\\PICC SCH ×3 (01:19→22:29)
[2022-03-07] MEDS: Chlorhexidine MOUTHWASH 0.12% 15 ML UDC TOPICAL SCH ×6 (02:10→22:28)
[2022-03-07] MEDS: Linezolid 600 MG IVPREMIX(*) 600 MG/300 ML BAG IVPB SCH ×2 (05:48→16:27)
[2022-03-07] MEDS: ZOSYN 3.375 GM Q8H per EXTENDED INFUSION IV SCH ×3 (05:48→22:28)
[2022-03-07 05:53] LABS: ABS Eosinophils 0.1 10^3/ul (0-0.6); ABS Lymphocytes 2.9 10^3/ul (1.0-4.8); ABS Monocytes 1.2 10^3/ul (0-0.8); ABS Neutrophils 10.9 10^3/ul (1.5-7.7); Eosinophil % 0.4 %; Hematocrit 44 % (42-52); Lymphocyte % 19.3 %; Mean Corpuscular HGB Conc 32 g/dL (31-36); Mean Corpuscular Hemoglobin 29 pg (27-31); Mean Corpuscular Volume 90 fL (80-94); Mean Platelet Volume 10.7 fL (7.4-10.4); Nucleated Red Blood Cells % 0.1; Platelet Count 248 10^3/uL (150-450); Red Cell Distribution Width 18 % (10-15); White Blood Count 15.1 10^3/uL (3.5-10.8)
[2022-03-07] MEDS: Heparin 5000 UNITS/ML 1 mL VIAL SUBCUT SCH ×3 (06:32→22:28)
[2022-03-07 06:36] LABS: Albumin 3.8 g/dL (3.2-5.2); Calcium 10.5 mg/dL (8.6-10.3); Globulin 3.9 g/dL (2-4); Magnesium 2.5 mg/dL (1.9-2.7); Potassium 3.1 mmol/L (3.5-5.0); Total Bilirubin 0.8 mg/dL (0.2-1.0); Total Protein 7.7 g/dL (6.4-8.9); eGFR CKD-EPI 45.3 (>60)
[2022-03-07] MEDS ORDERED: Potassium Chloride LIQUID 20 MEQ/15 ML LIQUID PO ONE ×2 (07:19→13:00)
[2022-03-07] MEDS: Insulin GLARGINE 100 un/ml 10 ml VIAL SUBCUT SCH (07:42)
[2022-03-07] MEDS ORDERED: methylPREDNISolone SOD SUCC 40 mg/ml 1 ml VIAL IV SCH (09:00)
[2022-03-07] MEDS ORDERED: Lorazepam PYXIS KEY PRN (16:39)
[2022-03-07] MEDS ORDERED: LORazepam 2 mg VIAL 1 ml IV PUSH PRN (16:39)
[2022-03-07] MEDS: Acetaminophen IV 1 GM/100ML 100 ML IV PRN (17:33)
[2022-03-07] MEDS: Pantoprazole VIAL 40 MG VIAL IV SCH (22:28)
[2022-03-08 04:17] LABS: ABS Lymphocytes 1.8 10^3/ul (1.0-4.8); ABS Monocytes 0.8 10^3/ul (0-0.8); ABS Neutrophils 10.3 10^3/ul (1.5-7.7); Eosinophil % 0.1 %; Hematocrit 43 % (42-52); Hemoglobin 13.5 g/dL (14.0-18.0); Lymphocyte % 14.1 %; Mean Corpuscular HGB Conc 31 g/dL (31-36); Mean Corpuscular Hemoglobin 28 pg (27-31); Mean Corpuscular Volume 90 fL (80-94); Mean Platelet Volume 10.7 fL (7.4-10.4); Platelet Count 231 10^3/uL (150-450); Red Blood Count 4.78 10^6 /uL (4.18-5.48); Red Cell Distribution Width 18 % (10-15)
[2022-03-08] MEDS: Chlorhexidine MOUTHWASH 0.12% 15 ML UDC TOPICAL SCH ×6 (04:20→22:55)
[2022-03-08] MEDS: Artificial Tear OPHTH.OINT 3.5 GM BOTH EYES SCH ×6 (04:20→22:54)
[2022-03-08 04:53] LABS: Albumin 3.5 g/dL (3.2-5.2); Calcium 9.3 mg/dL (8.6-10.3); Globulin 3.5 g/dL (2-4); Magnesium 2.2 mg/dL (1.9-2.7); Phosphorus 3.1 mg/dL (2.5-5.0); Potassium 3.4 mmol/L (3.5-5.0); Total Bilirubin 0.9 mg/dL (0.2-1.0); eGFR CKD-EPI 54.4 (>60)
[2022-03-08] MEDS ORDERED: Potassium Chloride LIQUID 20 MEQ/15 ML LIQUID PO ONE ×2 (05:00→08:30)
[2022-03-08] MEDS: ZOSYN 3.375 GM Q8H per EXTENDED INFUSION IV SCH ×3 (05:35→21:12)
[2022-03-08] MEDS: Heparin 5000 UNITS/ML 1 mL VIAL SUBCUT SCH ×3 (05:45→21:12)
[2022-03-08] MEDS: Linezolid 600 MG IVPREMIX(*) 600 MG/300 ML BAG IVPB SCH ×2 (05:45→17:23)
[2022-03-08] MEDS: Acetaminophen IV 1 GM/100ML 100 ML IV PRN (08:20)
[2022-03-08] MEDS: Insulin GLARGINE 100 un/ml 10 ml VIAL SUBCUT SCH (08:22)
[2022-03-08] MEDS: Saline FLUSH-CENTRAL 10 ML SYRINGE CENT\\PICC SCH ×2 (12:10→21:13)
[2022-03-08] MEDS: Pantoprazole VIAL 40 MG VIAL IV SCH (21:09)
[2022-03-09] MEDS: Chlorhexidine MOUTHWASH 0.12% 15 ML UDC TOPICAL SCH ×6 (02:59→23:45)
[2022-03-09] MEDS: Artificial Tear OPHTH.OINT 3.5 GM BOTH EYES SCH ×6 (02:59→23:47)
[2022-03-09] MEDS: ZOSYN 3.375 GM Q8H per EXTENDED INFUSION IV SCH ×3 (04:37→23:45)
[2022-03-09] MEDS: Heparin 5000 UNITS/ML 1 mL VIAL SUBCUT SCH ×3 (06:17→23:45)
[2022-03-09] MEDS: Linezolid 600 MG IVPREMIX(*) 600 MG/300 ML BAG IVPB SCH ×2 (06:18→17:47)
[2022-03-09 06:20] LABS: ABS Eosinophils 0.1 10^3/ul (0-0.6); ABS Lymphocytes 2.3 10^3/ul (1.0-4.8); ABS Monocytes 1.1 10^3/ul (0-0.8); ABS Neutrophils 10.4 10^3/ul (1.5-7.7); Eosinophil % 0.8 %; Hematocrit 41 % (42-52); Lymphocyte % 16.6 %; Mean Corpuscular HGB Conc 32 g/dL (31-36); Mean Corpuscular Hemoglobin 29 pg (27-31); Mean Corpuscular Volume 90 fL (80-94); Mean Platelet Volume 10.6 fL (7.4-10.4); Platelet Count 200 10^3/uL (150-450); Red Blood Count 4.56 10^6 /uL (4.18-5.48); Red Cell Distribution Width 18 % (10-15)
[2022-03-09 06:25] LABS: INR 1.32 (0.86-1.15)
[2022-03-09 07:00] LABS: Albumin 3.2 g/dL (3.2-5.2); Albumin/Globulin Ratio 0.9 (1-3); Calcium 9.3 mg/dL (8.6-10.3); Globulin 3.4 g/dL (2-4); Total Bilirubin 0.8 mg/dL (0.2-1.0); Total Protein 6.6 g/dL (6.4-8.9); eGFR CKD-EPI 66.1 (>60)
[2022-03-09] MEDS ORDERED: D5NS 0.9% 1000 ml BAG 1,000 ML IV SCH ×2 (07:48→08:00)
[2022-03-09] MEDS: KCL 20 MEQ/100 ML IVPREMIX 20 MEQ/100 ML BAG IV SCH ×3 (08:22→13:07)
[2022-03-09] MEDS ORDERED: D5W 1000 ml BAG 1,000 ML IV SCH (08:22)
[2022-03-09] MEDS: Insulin GLARGINE 100 un/ml 10 ml VIAL SUBCUT SCH (08:46)
[2022-03-09] MEDS: Saline FLUSH-CENTRAL 10 ML SYRINGE CENT\\PICC SCH ×2 (11:04→23:46)
[2022-03-09 13:24] LABS: Calcium 9.9 mg/dL (8.6-10.3); eGFR CKD-EPI 57.9 (>60)
[2022-03-09] MEDS ORDERED: Propofol 10 MG/ML 20 ML BTL ONE ×2 (13:32→16:16)
[2022-03-09] MEDS ORDERED: Dexmedetomidine 200 mcg/2 ml 2 ml VIAL (200 mcg) ONE (13:34)
[2022-03-09] MEDS ORDERED: fentaNYL 100 mcg/2 ml 50 MCG/ML VIAL ONE (13:34)
[2022-03-09] MEDS ORDERED: Ketamine HCL 50 mg/ml 10 ml VIAL (500 MG) ONE (14:47)
[2022-03-09] MEDS ORDERED: Lidocaine 2% w/ EPI 1:200,000 MPF 20 ML SDV VIAL ONE ×2 (14:49→15:54)
[2022-03-09] MEDS ORDERED: Phenylephrine 40 mcg/mL 10mL (400mcg) SYRINGE ONE (14:50)
[2022-03-09] MEDS ORDERED: Glycopyrrolate IV 0.2 MG/ML 1 ML VIAL ONE (15:05)
[2022-03-09] MEDS ORDERED: Ondansetron 4 mg VIAL 2 MG/ML 2 ml VIAL ONE (16:04)
[2022-03-09] MEDS ORDERED: Dexamethasone IV 4 MG/ML VIAL 1 ml VIAL ONE (16:04)
[2022-03-09] MEDS ORDERED: fentaNYL 100 mcg/2 ml 50 MCG/ML VIAL IV SLOW PU PRN (17:55)
[2022-03-09] MEDS ORDERED: Propofol 10 mg/ml 100 ML BTL 100 ML ONE (18:04)
[2022-03-09] MEDS: Propofol 10 mg/ml 100 ML BTL 100 ML IV SCH (18:10)
[2022-03-09] MEDS: Pantoprazole VIAL 40 MG VIAL IV SCH (23:45)
[2022-03-10] MEDS: Chlorhexidine MOUTHWASH 0.12% 15 ML UDC TOPICAL SCH ×6 (02:14→23:54)
[2022-03-10] MEDS: Artificial Tear OPHTH.OINT 3.5 GM BOTH EYES SCH ×6 (02:14→20:27)
[2022-03-10] MEDS: Propofol 10 mg/ml 100 ML BTL 100 ML IV SCH (04:34)
[2022-03-10 04:56] LABS: ABS Basophils 0.1 10^3/ul (0-0.2); ABS Lymphocytes 1.8 10^3/ul (1.0-4.8); ABS Monocytes 1.1 10^3/ul (0-0.8); ABS Neutrophils 10.5 10^3/ul (1.5-7.7); Eosinophil % 0.1 %; Hematocrit 40 % (42-52); Hemoglobin 12.7 g/dL (14.0-18.0); Lymphocyte % 13.3 %; Mean Corpuscular HGB Conc 32 g/dL (31-36); Mean Corpuscular Hemoglobin 28 pg (27-31); Mean Corpuscular Volume 89 fL (80-94); Mean Platelet Volume 10.6 fL (7.4-10.4); Platelet Count 176 10^3/uL (150-450); Red Cell Distribution Width 18 % (10-15); White Blood Count 13.5 10^3/uL (3.5-10.8)
[2022-03-10] MEDS: ZOSYN 3.375 GM Q8H per EXTENDED INFUSION IV SCH (05:27)
[2022-03-10] MEDS: Heparin 5000 UNITS/ML 1 mL VIAL SUBCUT SCH ×3 (05:28→20:27)
[2022-03-10 05:52] LABS: Calcium 9.3 mg/dL (8.6-10.3); Potassium 3.7 mmol/L (3.5-5.0); eGFR CKD-EPI 74.3 (>60)
[2022-03-10] MEDS: Linezolid 600 MG IVPREMIX(*) 600 MG/300 ML BAG IVPB SCH (06:08)
[2022-03-10 08:13] LABS: Magnesium 2.1 mg/dL (1.9-2.7); Phosphorus 3.4 mg/dL (2.5-5.0)
[2022-03-10] MEDS ORDERED: KCL 20 MEQ/100 ML IVPREMIX 20 MEQ/100 ML BAG IV ONE (08:30)
[2022-03-10] MEDS: Insulin GLARGINE 100 un/ml 10 ml VIAL SUBCUT SCH (09:41)
[2022-03-10] MEDS: Saline FLUSH-CENTRAL 10 ML SYRINGE CENT\\PICC SCH ×2 (09:42→23:53)
[2022-03-10] MEDS: fentaNYL 100 mcg/2 ml 50 MCG/ML VIAL IV SLOW PU PRN (19:24)
[2022-03-10] MEDS: Pantoprazole VIAL 40 MG VIAL IV SCH (20:26)
[2022-03-11] MEDS: Artificial Tear OPHTH.OINT 3.5 GM BOTH EYES SCH ×4 (00:32→15:12)
[2022-03-11] MEDS: fentaNYL 100 mcg/2 ml 50 MCG/ML VIAL IV SLOW PU PRN (00:32)
[2022-03-11] MEDS: Chlorhexidine MOUTHWASH 0.12% 15 ML UDC TOPICAL SCH ×5 (04:49→20:26)
[2022-03-11 05:02] LABS: ABS Basophils 0.1 10^3/ul (0-0.2); ABS Eosinophils 0.1 10^3/ul (0-0.6); ABS Lymphocytes 2.2 10^3/ul (1.0-4.8); ABS Monocytes 0.9 10^3/ul (0-0.8); ABS Neutrophils 8.2 10^3/ul (1.5-7.7); Eosinophil % 1.1 %; Hematocrit 38 % (42-52); Hemoglobin 12.3 g/dL (14.0-18.0); Mean Corpuscular HGB Conc 32 g/dL (31-36); Mean Corpuscular Hemoglobin 29 pg (27-31); Mean Corpuscular Volume 89 fL (80-94); Mean Platelet Volume 10.7 fL (7.4-10.4); Nucleated Red Blood Cells % 0.1; Platelet Count 146 10^3/uL (150-450); Red Blood Count 4.29 10^6 /uL (4.18-5.48); Red Cell Distribution Width 18 % (10-15); White Blood Count 11.5 10^3/uL (3.5-10.8)
[2022-03-11 05:22] LABS: Albumin 3.1 g/dL (3.2-5.2); Calcium 8.9 mg/dL (8.6-10.3); Globulin 3.1 g/dL (2-4); Potassium 3.2 mmol/L (3.5-5.0); Total Protein 6.2 g/dL (6.4-8.9); eGFR CKD-EPI 79.6 (>60)
[2022-03-11] MEDS: Heparin 5000 UNITS/ML 1 mL VIAL SUBCUT SCH ×3 (06:03→22:47)
[2022-03-11] MEDS ORDERED: Potassium Chloride LIQUID 20 MEQ/15 ML LIQUID PO ONE (07:51)
[2022-03-11] MEDS: Insulin GLARGINE 100 un/ml 10 ml VIAL SUBCUT SCH (08:41)
[2022-03-11] MEDS: Saline FLUSH-CENTRAL 10 ML SYRINGE CENT\\PICC SCH ×2 (11:43→22:47)
[2022-03-11] MEDS: Acetaminophen IV 1 GM/100ML 100 ML IV PRN (17:56)
[2022-03-11] MEDS: Pantoprazole VIAL 40 MG VIAL IV SCH (20:26)
[2022-03-12] MEDS: Chlorhexidine MOUTHWASH 0.12% 15 ML UDC TOPICAL SCH ×7 (01:42→23:46)
[2022-03-12 04:58] LABS: ABS Eosinophils 0.2 10^3/ul (0-0.6); ABS Monocytes 0.7 10^3/ul (0-0.8); Eosinophil % 2.6 %; Hematocrit 38 % (42-52); Hemoglobin 12.1 g/dL (14.0-18.0); Lymphocyte % 22.3 %; Mean Corpuscular HGB Conc 32 g/dL (31-36); Mean Corpuscular Hemoglobin 29 pg (27-31); Mean Corpuscular Volume 90 fL (80-94); Mean Platelet Volume 10.7 fL (7.4-10.4); Nucleated Red Blood Cells % 0.1; Platelet Count 119 10^3/uL (150-450); Red Blood Count 4.21 10^6 /uL (4.18-5.48); Red Cell Distribution Width 18 % (10-15); White Blood Count 8.9 10^3/uL (3.5-10.8)
[2022-03-12] MEDS: Heparin 5000 UNITS/ML 1 mL VIAL SUBCUT SCH ×3 (05:00→21:50)
[2022-03-12 05:44] LABS: PCO2 Arterial 56 mmHg (35-45); PO2 Arterial 76 mmHg (80-100)
[2022-03-12 05:53] LABS: Albumin 3.3 g/dL (3.2-5.2); Albumin/Globulin Ratio 1.1 (1-3); Calcium 9.3 mg/dL (8.6-10.3); Magnesium 2.2 mg/dL (1.9-2.7); Total Bilirubin 0.7 mg/dL (0.2-1.0); Total Protein 6.3 g/dL (6.4-8.9); eGFR CKD-EPI 88.9 (>60)
[2022-03-12] MEDS ORDERED: D5W 1000 ml BAG 1,000 ML IV SCH (08:00)
[2022-03-12] MEDS: Insulin GLARGINE 100 un/ml 10 ml VIAL SUBCUT SCH (08:05)
[2022-03-12] MEDS: Saline FLUSH-CENTRAL 10 ML SYRINGE CENT\\PICC SCH ×2 (11:38→23:48)
[2022-03-12 16:05] LABS: Calcium 9.2 mg/dL (8.6-10.3); Potassium 4.7 mmol/L (3.5-5.0); eGFR CKD-EPI 92.8 (>60)
[2022-03-12] MEDS: Pantoprazole VIAL 40 MG VIAL IV SCH (21:50)
[2022-03-13] MEDS: Chlorhexidine MOUTHWASH 0.12% 15 ML UDC TOPICAL SCH ×6 (04:04→23:55)
[2022-03-13 05:18] LABS: ABS Eosinophils 0.3 10^3/ul (0-0.6); ABS Lymphocytes 1.7 10^3/ul (1.0-4.8); ABS Monocytes 0.6 10^3/ul (0-0.8); ABS Neutrophils 6.9 10^3/ul (1.5-7.7); Hematocrit 38 % (42-52); Hemoglobin 11.8 g/dL (14.0-18.0); Lymphocyte % 17.5 %; Mean Corpuscular HGB Conc 31 g/dL (31-36); Mean Corpuscular Hemoglobin 29 pg (27-31); Mean Corpuscular Volume 91 fL (80-94); Mean Platelet Volume 10.8 fL (7.4-10.4); Platelet Count 133 10^3/uL (150-450); Red Blood Count 4.12 10^6 /uL (4.18-5.48); Red Cell Distribution Width 18 % (10-15); White Blood Count 9.5 10^3/uL (3.5-10.8)
[2022-03-13 06:08] LABS: Albumin 3.2 g/dL (3.2-5.2); Albumin/Globulin Ratio 1.1 (1-3); Calcium 9.2 mg/dL (8.6-10.3); Magnesium 2.1 mg/dL (1.9-2.7); Phosphorus 2.7 mg/dL (2.5-5.0); Potassium 4.1 mmol/L (3.5-5.0); Total Bilirubin 0.7 mg/dL (0.2-1.0); Total Protein 6.2 g/dL (6.4-8.9); eGFR CKD-EPI 94.4 (>60)
[2022-03-13] MEDS: Heparin 5000 UNITS/ML 1 mL VIAL SUBCUT SCH ×3 (06:39→22:20)
[2022-03-13] MEDS ORDERED: D5W 1000 ml BAG 1,000 ML IV SCH ×2 (08:00→12:30)
[2022-03-13] MEDS: Insulin GLARGINE 100 un/ml 10 ml VIAL SUBCUT SCH (08:03)
[2022-03-13 08:30] LABS: Ferritin 323.2 ng/mL (24-336)
[2022-03-13 08:33] LABS: Folate 8.65 ng/mL (5.90-24.80)
[2022-03-13] MEDS: Saline FLUSH-CENTRAL 10 ML SYRINGE CENT\\PICC SCH ×2 (09:22→23:55)
[2022-03-13] MEDS: Lansoprazole SUSP ORALSYR 3 MG/ML FEED TUBE SCH (14:33)
[2022-03-13 17:32] LABS: Calcium 8.8 mg/dL (8.6-10.3); Potassium 4.3 mmol/L (3.5-5.0); eGFR CKD-EPI 97.3 (>60)
[2022-03-14] MEDS: Chlorhexidine MOUTHWASH 0.12% 15 ML UDC TOPICAL SCH ×6 (04:54→23:55)
[2022-03-14 05:54] LABS: ABS Basophils 0.1 10^3/ul (0-0.2); ABS Eosinophils 0.4 10^3/ul (0-0.6); ABS Lymphocytes 1.9 10^3/ul (1.0-4.8); ABS Monocytes 0.6 10^3/ul (0-0.8); ABS Neutrophils 6.6 10^3/ul (1.5-7.7); Eosinophil % 3.7 %; Hematocrit 37 % (42-52); Hemoglobin 11.7 g/dL (14.0-18.0); Lymphocyte % 19.5 %; Mean Corpuscular HGB Conc 32 g/dL (31-36); Mean Corpuscular Hemoglobin 29 pg (27-31); Mean Corpuscular Volume 91 fL (80-94); Mean Platelet Volume 10.3 fL (7.4-10.4); Nucleated Red Blood Cells % 0.1; Platelet Count 111 10^3/uL (150-450); Red Blood Count 4.05 10^6 /uL (4.18-5.48); Red Cell Distribution Width 18 % (10-15); White Blood Count 9.5 10^3/uL (3.5-10.8)
[2022-03-14 06:30] LABS: Albumin 3.1 g/dL (3.2-5.2); Albumin/Globulin Ratio 1.1 (1-3); Calcium 8.9 mg/dL (8.6-10.3); Globulin 2.7 g/dL (2-4); Magnesium 1.9 mg/dL (1.9-2.7); Phosphorus 2.9 mg/dL (2.5-5.0); Potassium 3.9 mmol/L (3.5-5.0); Total Bilirubin 0.7 mg/dL (0.2-1.0); Total Protein 5.8 g/dL (6.4-8.9); eGFR CKD-EPI 99.3 (>60)
[2022-03-14] MEDS: Heparin 5000 UNITS/ML 1 mL VIAL SUBCUT SCH ×3 (06:38→22:36)
[2022-03-14] MEDS: Insulin GLARGINE 100 un/ml 10 ml VIAL SUBCUT SCH (09:02)
[2022-03-14] MEDS: Lansoprazole SUSP ORALSYR 3 MG/ML FEED TUBE SCH (09:03)
[2022-03-14] MEDS: Saline FLUSH-CENTRAL 10 ML SYRINGE CENT\\PICC SCH ×2 (12:58→23:53)
[2022-03-15] MEDS: Chlorhexidine MOUTHWASH 0.12% 15 ML UDC TOPICAL SCH ×5 (03:05→21:09)
[2022-03-15] MEDS: Heparin 5000 UNITS/ML 1 mL VIAL SUBCUT SCH (05:36)
[2022-03-15 05:57] LABS: ABS Basophils 0.1 10^3/ul (0-0.2); ABS Eosinophils 0.4 10^3/ul (0-0.6); ABS Lymphocytes 1.8 10^3/ul (1.0-4.8); ABS Monocytes 0.8 10^3/ul (0-0.8); ABS Neutrophils 7.4 10^3/ul (1.5-7.7); Eosinophil % 3.5 %; Hematocrit 38 % (42-52); Hemoglobin 12.1 g/dL (14.0-18.0); Lymphocyte % 17.5 %; Mean Corpuscular HGB Conc 32 g/dL (31-36); Mean Corpuscular Hemoglobin 29 pg (27-31); Mean Corpuscular Volume 91 fL (80-94); Mean Platelet Volume 10.9 fL (7.4-10.4); Platelet Count 144 10^3/uL (150-450); Red Blood Count 4.15 10^6 /uL (4.18-5.48); Red Cell Distribution Width 19 % (10-15); White Blood Count 10.4 10^3/uL (3.5-10.8)
[2022-03-15 06:27] LABS: Potassium 4.2 mmol/L (3.5-5.0)
[2022-03-15 06:28] LABS: Albumin 3.2 g/dL (3.2-5.2); Calcium 9.3 mg/dL (8.6-10.3); Total Bilirubin 0.7 mg/dL (0.2-1.0)
[2022-03-15 06:34] LABS: Albumin/Globulin Ratio 1.1 (1-3); Globulin 2.9 g/dL (2-4); Phosphorus 2.6 mg/dL (2.5-5.0); Total Protein 6.1 g/dL (6.4-8.9); eGFR CKD-EPI 92.5 (>60)
[2022-03-15] MEDS: Lansoprazole SUSP ORALSYR 3 MG/ML FEED TUBE SCH (08:46)
[2022-03-15] MEDS: Insulin GLARGINE 100 un/ml 10 ml VIAL SUBCUT SCH (08:47)
[2022-03-15] MEDS: Saline FLUSH-CENTRAL 10 ML SYRINGE CENT\\PICC SCH ×2 (12:30→21:09)
[2022-03-15] MEDS ORDERED: Enoxaparin 40 MG/0.4 ML SYR SUBCUT SCH (21:00)
[2022-03-16] MEDS ORDERED: Furosemide 40 mg/4 ml IV VIAL IV ONE ×2 (01:32→18:00)
[2022-03-16] MEDS: Chlorhexidine MOUTHWASH 0.12% 15 ML UDC TOPICAL SCH ×7 (03:55→23:34)
[2022-03-16 05:41] LABS: Albumin 3.2 g/dL (3.2-5.2); Calcium 9.3 mg/dL (8.6-10.3); Globulin 3.2 g/dL (2-4); Magnesium 1.8 mg/dL (1.9-2.7); Total Bilirubin 0.8 mg/dL (0.2-1.0); Total Protein 6.4 g/dL (6.4-8.9); eGFR CKD-EPI 84.5 (>60)
[2022-03-16] MEDS ORDERED: Magnesium Sulfate 2 gm BAG 2 GM/50 ML BAG IVPB ONE (07:07)
[2022-03-16 08:14] LABS: PCO2 Arterial 56 mmHg (35-45); PO2 Arterial 146 mmHg (80-100)
[2022-03-16 09:02] LABS: ABS Basophils 0.1 10^3/ul (0-0.2); ABS Eosinophils 0.4 10^3/ul (0-0.6); ABS Lymphocytes 1.8 10^3/ul (1.0-4.8); ABS Monocytes 0.9 10^3/ul (0-0.8); ABS Neutrophils 8.6 10^3/ul (1.5-7.7); Eosinophil % 3.1 %; Hematocrit 35 % (42-52); Hemoglobin 11.4 g/dL (14.0-18.0); Lymphocyte % 15.6 %; Mean Corpuscular HGB Conc 32 g/dL (31-36); Mean Corpuscular Hemoglobin 29 pg (27-31); Mean Corpuscular Volume 89 fL (80-94); Mean Platelet Volume 10.1 fL (7.4-10.4); Platelet Count 139 10^3/uL (150-450); Red Blood Count 3.95 10^6 /uL (4.18-5.48); Red Cell Distribution Width 19 % (10-15); White Blood Count 11.8 10^3/uL (3.5-10.8)
[2022-03-16] MEDS: Insulin GLARGINE 100 un/ml 10 ml VIAL SUBCUT SCH (10:26)
[2022-03-16] MEDS: Lansoprazole SUSP ORALSYR 3 MG/ML FEED TUBE SCH (10:37)
[2022-03-16] MEDS: Saline FLUSH-CENTRAL 10 ML SYRINGE CENT\\PICC SCH ×2 (11:31→23:34)
[2022-03-16 12:28] LABS: Activated Partial Thrombo Time 23.4 seconds (26.0-38.0); INR 1.22 (0.86-1.15)
[2022-03-17] MEDS: Chlorhexidine MOUTHWASH 0.12% 15 ML UDC TOPICAL SCH ×6 (02:14→23:47)
[2022-03-17 06:22] LABS: Hematocrit 35 % (42-52); Mean Corpuscular HGB Conc 32 g/dL (31-36); Mean Corpuscular Hemoglobin 29 pg (27-31); Mean Corpuscular Volume 90 fL (80-94); Mean Platelet Volume 10.3 fL (7.4-10.4); Platelet Count 140 10^3/uL (150-450); Red Blood Count 3.83 10^6 /uL (4.18-5.48); Red Cell Distribution Width 19 % (10-15); White Blood Count 11.6 10^3/uL (3.5-10.8)
[2022-03-17 06:35] LABS: Calcium 9.3 mg/dL (8.6-10.3); Potassium 3.7 mmol/L (3.5-5.0)
[2022-03-17 06:41] LABS: eGFR CKD-EPI 92.5 (>60)
[2022-03-17] MEDS ORDERED: Furosemide 40 mg/4 ml IV VIAL IV ONE ×2 (07:24→08:58)
[2022-03-17] MEDS: Insulin GLARGINE 100 un/ml 10 ml VIAL SUBCUT SCH (08:29)
[2022-03-17] MEDS: Saline FLUSH-CENTRAL 10 ML SYRINGE CENT\\PICC SCH (15:20)
[2022-03-17] MEDS: Dextran 70/Hypromellose Tears Eye Drops 15 ml BTL (for Artificials Tears) BOTH EYES PRN (18:19)
[2022-03-17] MEDS: Heparin 5000 UNITS/ML 1 mL VIAL SUBCUT SCH (22:14)
[2022-03-18] MEDS: Saline FLUSH-CENTRAL 10 ML SYRINGE CENT\\PICC SCH ×3 (01:08→23:00)
[2022-03-18] MEDS: Chlorhexidine MOUTHWASH 0.12% 15 ML UDC TOPICAL SCH ×6 (03:14→23:12)
[2022-03-18 06:26] LABS: Hematocrit 34 % (42-52); Mean Corpuscular HGB Conc 33 g/dL (31-36); Mean Corpuscular Hemoglobin 30 pg (27-31); Mean Corpuscular Volume 91 fL (80-94); Mean Platelet Volume 10.3 fL (7.4-10.4); Platelet Count 127 10^3/uL (150-450); Red Blood Count 3.72 10^6 /uL (4.18-5.48); Red Cell Distribution Width 19 % (10-15); White Blood Count 10.6 10^3/uL (3.5-10.8)
[2022-03-18 06:51] LABS: Calcium 8.9 mg/dL (8.6-10.3); Magnesium 1.7 mg/dL (1.9-2.7); Potassium 3.8 mmol/L (3.5-5.0)
[2022-03-18 06:57] LABS: eGFR CKD-EPI 91.2 (>60)
[2022-03-18] MEDS ORDERED: Furosemide 40 mg/4 ml IV VIAL IV ONE ×2 (07:08→09:18)
[2022-03-18] MEDS: Insulin GLARGINE 100 un/ml 10 ml VIAL SUBCUT SCH (08:01)
[2022-03-18] MEDS: Heparin 5000 UNITS/ML 1 mL VIAL SUBCUT SCH ×2 (08:01→22:13)
[2022-03-18] MEDS ORDERED: Magnesium Sulfate IV 3 GM in NS 0.9% 100 ml BAG 100 ML IVPB ONE (08:45)
[2022-03-18] MEDS ORDERED: Magnesium Sulfate 1 GM IV 1 GM/100 ML BAG IV ONE (09:00)
[2022-03-18] MEDS ORDERED: Magnesium Sulfate 2 GM IV (Premix) IVPB ONE (09:00)
[2022-03-19] MEDS: Chlorhexidine MOUTHWASH 0.12% 15 ML UDC TOPICAL SCH ×2 (03:00→08:46)
[2022-03-19 07:15] LABS: Hematocrit 33 % (42-52); Hemoglobin 10.4 g/dL (14.0-18.0); Mean Corpuscular HGB Conc 32 g/dL (31-36); Mean Corpuscular Hemoglobin 29 pg (27-31); Mean Corpuscular Volume 90 fL (80-94); Mean Platelet Volume 9.7 fL (7.4-10.4); Platelet Count 135 10^3/uL (150-450); Red Blood Count 3.62 10^6 /uL (4.18-5.48); Red Cell Distribution Width 20 % (10-15); White Blood Count 8.5 10^3/uL (3.5-10.8)
[2022-03-19 07:40] LABS: Calcium 9.1 mg/dL (8.6-10.3); Potassium 3.8 mmol/L (3.5-5.0); eGFR CKD-EPI 95.8 (>60)
[2022-03-19] MEDS ORDERED: Furosemide 40 mg/4 ml IV VIAL IV ONE (07:53)
[2022-03-19] MEDS: Heparin 5000 UNITS/ML 1 mL VIAL SUBCUT SCH ×3 (08:48→17:52)
[2022-03-19] MEDS: Insulin GLARGINE 100 un/ml 10 ml VIAL SUBCUT SCH (08:49)
[2022-03-19] MEDS ORDERED: Alteplase (CATHFLO) 2 MG VIAL IV ONE (08:55)
[2022-03-19] MEDS ORDERED: Alteplase (CATHFLO) 2 MG VIAL ONE (14:00)
[2022-03-19] MEDS: Saline FLUSH-CENTRAL 10 ML SYRINGE CENT\\PICC SCH ×2 (14:44→23:00)
[2022-03-19] MEDS: Dextran 70/Hypromellose Tears Eye Drops 15 ml BTL (for Artificials Tears) BOTH EYES PRN (17:51)
[2022-03-20] MEDS ORDERED: Furosemide 20 mg/2 ml IV VIAL IV ONE (00:47)
[2022-03-20] MEDS: Heparin 5000 UNITS/ML 1 mL VIAL SUBCUT SCH ×2 (01:30→09:54)
[2022-03-20] MEDS: Chlorhexidine MOUTHWASH 0.12% 15 ML UDC TOPICAL SCH (03:31)
[2022-03-20 04:42] LABS: ABS Basophils 0.1 10^3/ul (0-0.2); ABS Eosinophils 0.4 10^3/ul (0-0.6); ABS Lymphocytes 1.1 10^3/ul (1.0-4.8); ABS Monocytes 0.6 10^3/ul (0-0.8); Eosinophil % 5.6 %; Hematocrit 31 % (42-52); Hemoglobin 10.1 g/dL (14.0-18.0); Lymphocyte % 15.5 %; Mean Corpuscular HGB Conc 33 g/dL (31-36); Mean Corpuscular Hemoglobin 29 pg (27-31); Mean Corpuscular Volume 89 fL (80-94); Mean Platelet Volume 9.9 fL (7.4-10.4); Platelet Count 146 10^3/uL (150-450); Red Blood Count 3.48 10^6 /uL (4.18-5.48); Red Cell Distribution Width 20 % (10-15); White Blood Count 7.2 10^3/uL (3.5-10.8)
[2022-03-20 05:15] LABS: Calcium 8.9 mg/dL (8.6-10.3); Magnesium 1.8 mg/dL (1.9-2.7); Phosphorus 2.5 mg/dL (2.5-5.0); Potassium 3.9 mmol/L (3.5-5.0); eGFR CKD-EPI 97.7 (>60)
[2022-03-20] MEDS ORDERED: Magnesium Sulfate 2 gm BAG 2 GM/50 ML BAG IVPB ONE (05:32)
[2022-03-20] MEDS: Insulin GLARGINE 100 un/ml 10 ml VIAL SUBCUT SCH (08:32)
[2022-03-20] MEDS ORDERED: Polyethylene Glycol 3350 17 GM PACKET NG TUBE PRN (08:40)
[2022-03-20] MEDS: Saline FLUSH-CENTRAL 10 ML SYRINGE CENT\\PICC SCH (11:51)
[2022-03-20] MEDS ORDERED: Dextrose 50% Syringe 50 ml 25 GM/50 ML SYRINGE IV PUSH PRN (17:49)
[2022-03-21 05:18] LABS: ABS Eosinophils 0.4 10^3/ul (0-0.6); ABS Lymphocytes 1.1 10^3/ul (1.0-4.8); ABS Monocytes 0.5 10^3/ul (0-0.8); Eosinophil % 6.2 %; Hematocrit 31 % (42-52); Hemoglobin 9.8 g/dL (14.0-18.0); Lymphocyte % 18.8 %; Mean Corpuscular HGB Conc 32 g/dL (31-36); Mean Corpuscular Hemoglobin 29 pg (27-31); Mean Corpuscular Volume 90 fL (80-94); Mean Platelet Volume 9.8 fL (7.4-10.4); Platelet Count 144 10^3/uL (150-450); Red Cell Distribution Width 19 % (10-15)
[2022-03-21 05:43] LABS: Potassium 3.7 mmol/L (3.5-5.0)
[2022-03-21 05:44] LABS: Albumin 2.9 g/dL (3.2-5.2); Albumin/Globulin Ratio 1.1 (1-3); Direct Bilirubin 0.3 mg/dL (0.03-0.18); Globulin 2.6 g/dL (2-4); Indirect Bilirubin 0.5 mg/dL (0.3-1.0); Total Bilirubin 0.8 mg/dL (0.2-1.0); Total Protein 5.5 g/dL (6.4-8.9); eGFR CKD-EPI 99.3 (>60)
[2022-03-21] MEDS ORDERED: Ondansetron 4 mg VIAL 2 MG/ML 2 ml VIAL ONE (10:14)
[2022-03-21] MEDS ORDERED: Ondansetron 4 mg VIAL 2 MG/ML 2 ml VIAL IV PRN (10:15)
[2022-03-21] MEDS: Insulin GLARGINE 100 un/ml 10 ml VIAL SUBCUT SCH (11:29)
[2022-03-21] MEDS: Saline FLUSH-CENTRAL 10 ML SYRINGE CENT\\PICC SCH ×2 (15:02)
[2022-03-22] MEDS: Saline FLUSH-CENTRAL 10 ML SYRINGE CENT\\PICC SCH ×3 (00:35→22:04)
[2022-03-22 05:31] LABS: ABS Eosinophils 0.3 10^3/ul (0-0.6); ABS Lymphocytes 1.2 10^3/ul (1.0-4.8); ABS Monocytes 0.5 10^3/ul (0-0.8); ABS Neutrophils 3.6 10^3/ul (1.5-7.7); Hematocrit 31 % (42-52); Hemoglobin 9.8 g/dL (14.0-18.0); Lymphocyte % 21.6 %; Mean Corpuscular HGB Conc 32 g/dL (31-36); Mean Corpuscular Hemoglobin 28 pg (27-31); Mean Corpuscular Volume 90 fL (80-94); Mean Platelet Volume 9.9 fL (7.4-10.4); Nucleated Red Blood Cells % 0.1; Platelet Count 152 10^3/uL (150-450); Red Blood Count 3.43 10^6 /uL (4.18-5.48); Red Cell Distribution Width 20 % (10-15); White Blood Count 5.7 10^3/uL (3.5-10.8)
[2022-03-22 05:49] LABS: Calcium 9.1 mg/dL (8.6-10.3); Magnesium 1.9 mg/dL (1.9-2.7); Potassium 3.7 mmol/L (3.5-5.0); eGFR CKD-EPI 98.1 (>60)
[2022-03-22] MEDS: Insulin GLARGINE 100 un/ml 10 ml VIAL SUBCUT SCH (08:59)
[2022-03-22] MEDS: Chlorhexidine MOUTHWASH 0.12% 15 ML UDC SWISH SPIT SCH ×4 (12:24→22:08)
[2022-03-22] MEDS: Pantoprazole VIAL 40 MG VIAL IV SCH (12:26)
[2022-03-22] MEDS ORDERED: Lidocaine 5% OINT TUBE TOPICAL PRN (16:01)
[2022-03-23] MEDS: Chlorhexidine MOUTHWASH 0.12% 15 ML UDC SWISH SPIT SCH ×3 (03:30→09:06)
[2022-03-23 04:27] LABS: ABS Basophils 0.1 10^3/ul (0-0.2); ABS Eosinophils 0.4 10^3/ul (0-0.6); ABS Lymphocytes 1.4 10^3/ul (1.0-4.8); ABS Monocytes 0.7 10^3/ul (0-0.8); ABS Neutrophils 3.7 10^3/ul (1.5-7.7); Eosinophil % 5.7 %; Hematocrit 32 % (42-52); Hemoglobin 10.1 g/dL (14.0-18.0); Lymphocyte % 22.4 %; Mean Corpuscular HGB Conc 32 g/dL (31-36); Mean Corpuscular Hemoglobin 29 pg (27-31); Mean Corpuscular Volume 90 fL (80-94); Mean Platelet Volume 9.2 fL (7.4-10.4); Platelet Count 166 10^3/uL (150-450); Red Blood Count 3.55 10^6 /uL (4.18-5.48); Red Cell Distribution Width 20 % (10-15); White Blood Count 6.2 10^3/uL (3.5-10.8)
[2022-03-23 05:06] LABS: Calcium 9.1 mg/dL (8.6-10.3); Potassium 3.5 mmol/L (3.5-5.0); eGFR CKD-EPI 95.4 (>60)
[2022-03-23] MEDS ORDERED: Potassium Chloride LIQUID 20 MEQ/15 ML LIQUID PO ONE (07:39)
[2022-03-23] MEDS: Pantoprazole VIAL 40 MG VIAL IV SCH (09:06)
[2022-03-23] MEDS: Insulin GLARGINE 100 un/ml 10 ml VIAL SUBCUT SCH (09:08)
[2022-03-23] MEDS: Saline FLUSH-CENTRAL 10 ML SYRINGE CENT\\PICC SCH ×2 (09:09→23:05)
[2022-03-23] MEDS: Albuterol/Ipratropium NEB.SOL (2.5/0.5 MG) 3 ML NEB.SOLN INH PRN (23:52)
[2022-03-24 05:25] LABS: ABS Eosinophils 0.3 10^3/ul (0-0.6); ABS Lymphocytes 1.5 10^3/ul (1.0-4.8); ABS Monocytes 0.6 10^3/ul (0-0.8); ABS Neutrophils 3.6 10^3/ul (1.5-7.7); Eosinophil % 4.2 %; Hematocrit 31 % (42-52); Hemoglobin 9.9 g/dL (14.0-18.0); Lymphocyte % 24.4 %; Mean Corpuscular HGB Conc 32 g/dL (31-36); Mean Corpuscular Hemoglobin 29 pg (27-31); Mean Corpuscular Volume 90 fL (80-94); Mean Platelet Volume 9.6 fL (7.4-10.4); Nucleated Red Blood Cells % 0.1; Platelet Count 174 10^3/uL (150-450); Red Cell Distribution Width 20 % (10-15)
[2022-03-24 06:16] LABS: Calcium 8.9 mg/dL (8.6-10.3); Potassium 3.7 mmol/L (3.5-5.0); eGFR CKD-EPI 96.2 (>60)
[2022-03-24] MEDS ORDERED: Potassium Chloride LIQUID 20 MEQ/15 ML LIQUID PO ONE (07:20)
[2022-03-24] MEDS: Pantoprazole VIAL 40 MG VIAL IV SCH (08:33)
[2022-03-24] MEDS: Insulin GLARGINE 100 un/ml 10 ml VIAL SUBCUT SCH (08:52)
[2022-03-24] MEDS: Saline FLUSH-CENTRAL 10 ML SYRINGE CENT\\PICC SCH ×2 (08:52→22:12)
[2022-03-24] MEDS: Albuterol/Ipratropium NEB.SOL (2.5/0.5 MG) 3 ML NEB.SOLN INH PRN (19:43)
[2022-03-25 06:36] LABS: ABS Eosinophils 0.3 10^3/ul (0-0.6); ABS Lymphocytes 1.7 10^3/ul (1.0-4.8); ABS Monocytes 0.7 10^3/ul (0-0.8); ABS Neutrophils 4.3 10^3/ul (1.5-7.7); Eosinophil % 3.6 %; Hematocrit 31 % (42-52); Hemoglobin 10.2 g/dL (14.0-18.0); Lymphocyte % 23.9 %; Mean Corpuscular HGB Conc 32 g/dL (31-36); Mean Corpuscular Hemoglobin 29 pg (27-31); Mean Corpuscular Volume 90 fL (80-94); Mean Platelet Volume 9.4 fL (7.4-10.4); Nucleated Red Blood Cells % 0.1; Platelet Count 179 10^3/uL (150-450); Red Blood Count 3.51 10^6 /uL (4.18-5.48); Red Cell Distribution Width 20 % (10-15)
[2022-03-25 06:59] LABS: Calcium 8.8 mg/dL (8.6-10.3); Potassium 4.2 mmol/L (3.5-5.0); eGFR CKD-EPI 94.4 (>60)
[2022-03-25] MEDS: Pantoprazole VIAL 40 MG VIAL IV SCH (08:33)
[2022-03-25] MEDS: Insulin GLARGINE 100 un/ml 10 ml VIAL SUBCUT SCH (08:34)
[2022-03-25] MEDS: Saline FLUSH-CENTRAL 10 ML SYRINGE CENT\\PICC SCH ×2 (08:40→20:35)
[2022-03-26] MEDS: Pantoprazole VIAL 40 MG VIAL IV SCH (08:49)
[2022-03-26] MEDS: Insulin GLARGINE 100 un/ml 10 ml VIAL SUBCUT SCH (08:49)
[2022-03-26] MEDS: Saline FLUSH-CENTRAL 10 ML SYRINGE CENT\\PICC SCH ×2 (08:50→20:55)
[2022-03-26] MEDS: Albuterol/Ipratropium NEB.SOL (2.5/0.5 MG) 3 ML NEB.SOLN INH PRN (17:28)
[2022-03-27 04:31] LABS: ABS Basophils 0.1 10^3/ul (0-0.2); ABS Eosinophils 0.3 10^3/ul (0-0.6); ABS Lymphocytes 1.9 10^3/ul (1.0-4.8); ABS Monocytes 0.7 10^3/ul (0-0.8); ABS Neutrophils 4.2 10^3/ul (1.5-7.7); Eosinophil % 3.8 %; Hematocrit 33 % (42-52); Hemoglobin 10.7 g/dL (14.0-18.0); Lymphocyte % 27.2 %; Mean Corpuscular HGB Conc 32 g/dL (31-36); Mean Corpuscular Hemoglobin 29 pg (27-31); Mean Corpuscular Volume 90 fL (80-94); Mean Platelet Volume 8.6 fL (7.4-10.4); Platelet Count 213 10^3/uL (150-450); Red Cell Distribution Width 20 % (10-15); White Blood Count 7.1 10^3/uL (3.5-10.8)
[2022-03-27 05:03] LABS: Calcium 8.6 mg/dL (8.6-10.3); Potassium 3.7 mmol/L (3.5-5.0); eGFR CKD-EPI 92.5 (>60)
[2022-03-27] MEDS: Saline FLUSH-CENTRAL 10 ML SYRINGE CENT\\PICC SCH ×2 (07:32→20:05)
[2022-03-27] MEDS: Insulin GLARGINE 100 un/ml 10 ml VIAL SUBCUT SCH (07:41)
[2022-03-27] MEDS: Pantoprazole VIAL 40 MG VIAL IV SCH (10:26)
[2022-03-27] MEDS: Albuterol/Ipratropium NEB.SOL (2.5/0.5 MG) 3 ML NEB.SOLN INH PRN (13:55)
[2022-03-28] MEDS ORDERED: Potassium Chloride LIQUID 20 MEQ/15 ML LIQUID PO ONE (06:16)
[2022-03-28] MEDS: Saline FLUSH-CENTRAL 10 ML SYRINGE CENT\\PICC SCH ×2 (08:01→20:31)
[2022-03-28] MEDS: Pantoprazole VIAL 40 MG VIAL IV SCH (09:49)
[2022-03-28] MEDS: Insulin GLARGINE 100 un/ml 10 ml VIAL SUBCUT SCH (09:49)
[2022-03-28] MEDS: Albuterol/Ipratropium NEB.SOL (2.5/0.5 MG) 3 ML NEB.SOLN INH PRN (10:15)
[2022-03-29 04:59] LABS: ABS Basophils 0.1 10^3/ul (0-0.2); ABS Eosinophils 0.2 10^3/ul (0-0.6); ABS Monocytes 0.8 10^3/ul (0-0.8); ABS Neutrophils 4.3 10^3/ul (1.5-7.7); Eosinophil % 3.2 %; Hematocrit 32 % (42-52); Hemoglobin 10.4 g/dL (14.0-18.0); Lymphocyte % 27.4 %; Mean Corpuscular HGB Conc 32 g/dL (31-36); Mean Corpuscular Hemoglobin 29 pg (27-31); Mean Corpuscular Volume 89 fL (80-94); Mean Platelet Volume 8.2 fL (7.4-10.4); Nucleated Red Blood Cells % 0.1; Platelet Count 218 10^3/uL (150-450); Red Blood Count 3.63 10^6 /uL (4.18-5.48); Red Cell Distribution Width 20 % (10-15); White Blood Count 7.4 10^3/uL (3.5-10.8)
[2022-03-29 05:37] LABS: Calcium 8.3 mg/dL (8.6-10.3); Magnesium 1.7 mg/dL (1.9-2.7); Potassium 3.5 mmol/L (3.5-5.0); eGFR CKD-EPI 80.5 (>60)
[2022-03-29] MEDS ORDERED: Magnesium Sulfate IV 3 GM in NS 0.9% 100 ml BAG 100 ML IVPB ONE (06:54)
[2022-03-29] MEDS: Albuterol/Ipratropium NEB.SOL (2.5/0.5 MG) 3 ML NEB.SOLN INH PRN (07:19)
[2022-03-29] MEDS ORDERED: Magnesium Sulfate 2 GM IV (Premix) IVPB ONE (07:30)
[2022-03-29] MEDS ORDERED: Potassium Chloride LIQUID 20 MEQ/15 ML LIQUID PO ONE (07:53)
[2022-03-29] MEDS: Pantoprazole VIAL 40 MG VIAL IV SCH (08:47)
[2022-03-29] MEDS: Insulin GLARGINE 100 un/ml 10 ml VIAL SUBCUT SCH (08:58)
[2022-03-29] MEDS: Saline FLUSH-CENTRAL 10 ML SYRINGE CENT\\PICC SCH ×2 (08:58→20:13)
[2022-03-29] MEDS ORDERED: Magnesium Sulfate 1 GM IV 1 GM/100 ML BAG IV ONE (09:00)
[2022-03-29] MEDS: Albuterol/Ipratropium NEB.SOL (2.5/0.5 MG) 3 ML NEB.SOLN INH SCH ×2 (11:03→19:18)
[2022-03-29] MEDS: Budesonide NEB 0.5 MG/2 ML NEB.SOLN INH SCH (19:18)
[2022-03-30] MEDS: Albuterol/Ipratropium NEB.SOL (2.5/0.5 MG) 3 ML NEB.SOLN INH SCH ×4 (03:05→20:10)
[2022-03-30 05:24] LABS: ABS Basophils 0.1 10^3/ul (0-0.2); ABS Eosinophils 0.2 10^3/ul (0-0.6); ABS Lymphocytes 2.1 10^3/ul (1.0-4.8); ABS Monocytes 0.7 10^3/ul (0-0.8); ABS Neutrophils 3.7 10^3/ul (1.5-7.7); Eosinophil % 3.4 %; Hematocrit 32 % (42-52); Hemoglobin 10.3 g/dL (14.0-18.0); Lymphocyte % 30.6 %; Mean Corpuscular HGB Conc 33 g/dL (31-36); Mean Corpuscular Hemoglobin 29 pg (27-31); Mean Corpuscular Volume 89 fL (80-94); Mean Platelet Volume 8.7 fL (7.4-10.4); Nucleated Red Blood Cells % 0.1; Platelet Count 218 10^3/uL (150-450); Red Blood Count 3.54 10^6 /uL (4.18-5.48); Red Cell Distribution Width 20 % (10-15); White Blood Count 6.7 10^3/uL (3.5-10.8)
[2022-03-30 05:54] LABS: Albumin 2.7 g/dL (3.2-5.2); Albumin/Globulin Ratio 0.9 (1-3); Calcium 8.4 mg/dL (8.6-10.3); Magnesium 2.3 mg/dL (1.9-2.7); Potassium 3.7 mmol/L (3.5-5.0); Total Bilirubin 0.8 mg/dL (0.2-1.0); Total Protein 5.7 g/dL (6.4-8.9); eGFR CKD-EPI 79.6 (>60)
[2022-03-30] MEDS: Budesonide NEB 0.5 MG/2 ML NEB.SOLN INH SCH ×2 (07:23→20:10)
[2022-03-30] MEDS: Pantoprazole VIAL 40 MG VIAL IV SCH (08:41)
[2022-03-30] MEDS: Saline FLUSH-CENTRAL 10 ML SYRINGE CENT\\PICC SCH ×2 (08:42→20:41)
[2022-03-30] MEDS: Insulin GLARGINE 100 un/ml 10 ml VIAL SUBCUT SCH (08:52)
[2022-03-30] MEDS ORDERED: Lidocaine 5% OINT TUBE TOPICAL PRN (16:22)
[2022-03-31] MEDS: Albuterol/Ipratropium NEB.SOL (2.5/0.5 MG) 3 ML NEB.SOLN INH SCH ×3 (05:59→23:03)
[2022-03-31] MEDS: Budesonide NEB 0.5 MG/2 ML NEB.SOLN INH SCH ×2 (05:59→19:19)
[2022-03-31] MEDS: Pantoprazole VIAL 40 MG VIAL IV SCH (08:36)
[2022-03-31] MEDS: Saline FLUSH-CENTRAL 10 ML SYRINGE CENT\\PICC SCH ×2 (08:37→21:53)
[2022-03-31] MEDS: Insulin GLARGINE 100 un/ml 10 ml VIAL SUBCUT SCH (08:37)
[2022-04-01 05:27] LABS: ABS Basophils 0.1 10^3/ul (0-0.2); ABS Eosinophils 0.3 10^3/ul (0-0.6); ABS Lymphocytes 2.7 10^3/ul (1.0-4.8); ABS Monocytes 0.7 10^3/ul (0-0.8); ABS Neutrophils 4.6 10^3/ul (1.5-7.7); Eosinophil % 3.3 %; Hematocrit 35 % (42-52); Hemoglobin 11.3 g/dL (14.0-18.0); Mean Corpuscular HGB Conc 33 g/dL (31-36); Mean Corpuscular Hemoglobin 29 pg (27-31); Mean Corpuscular Volume 90 fL (80-94); Mean Platelet Volume 8.7 fL (7.4-10.4); Platelet Count 260 10^3/uL (150-450); Red Blood Count 3.86 10^6 /uL (4.18-5.48); Red Cell Distribution Width 20 % (10-15); White Blood Count 8.3 10^3/uL (3.5-10.8)
[2022-04-01 05:46] LABS: Calcium 8.9 mg/dL (8.6-10.3); Potassium 3.8 mmol/L (3.5-5.0); eGFR CKD-EPI 79.6 (>60)
[2022-04-01] MEDS ORDERED: Potassium Chloride LIQUID 20 MEQ/15 ML LIQUID PO ONE (06:06)
[2022-04-01] MEDS: Albuterol/Ipratropium NEB.SOL (2.5/0.5 MG) 3 ML NEB.SOLN INH SCH ×3 (07:41→21:56)
[2022-04-01] MEDS: Budesonide NEB 0.5 MG/2 ML NEB.SOLN INH SCH ×2 (07:41→21:56)
[2022-04-01] MEDS: Insulin GLARGINE 100 un/ml 10 ml VIAL SUBCUT SCH (07:56)
[2022-04-01] MEDS: Saline FLUSH-CENTRAL 10 ML SYRINGE CENT\\PICC SCH ×2 (07:59→20:18)
[2022-04-01] MEDS: Pantoprazole VIAL 40 MG VIAL IV SCH (10:32)
[2022-04-02] MEDS: Albuterol/Ipratropium NEB.SOL (2.5/0.5 MG) 3 ML NEB.SOLN INH SCH ×3 (06:00→19:46)
[2022-04-02] MEDS: Budesonide NEB 0.5 MG/2 ML NEB.SOLN INH SCH ×2 (06:01→19:46)
[2022-04-02] MEDS: Insulin GLARGINE 100 un/ml 10 ml VIAL SUBCUT SCH (08:29)
[2022-04-02] MEDS: Pantoprazole VIAL 40 MG VIAL IV SCH (08:30)
[2022-04-02] MEDS: Saline FLUSH-CENTRAL 10 ML SYRINGE CENT\\PICC SCH ×2 (11:52→21:08)
[2022-04-03] MEDS: Albuterol/Ipratropium NEB.SOL (2.5/0.5 MG) 3 ML NEB.SOLN INH SCH ×4 (03:09→21:47)
[2022-04-03 04:15] LABS: ABS Basophils 0.1 10^3/ul (0-0.2); ABS Eosinophils 0.2 10^3/ul (0-0.6); ABS Lymphocytes 2.3 10^3/ul (1.0-4.8); ABS Monocytes 0.6 10^3/ul (0-0.8); ABS Neutrophils 4.3 10^3/ul (1.5-7.7); Eosinophil % 3.2 %; Hematocrit 34 % (42-52); Hemoglobin 10.7 g/dL (14.0-18.0); Lymphocyte % 30.6 %; Mean Corpuscular HGB Conc 32 g/dL (31-36); Mean Corpuscular Hemoglobin 28 pg (27-31); Mean Corpuscular Volume 90 fL (80-94); Mean Platelet Volume 8.3 fL (7.4-10.4); Nucleated Red Blood Cells % 0.2; Platelet Count 221 10^3/uL (150-450); Red Blood Count 3.78 10^6 /uL (4.18-5.48); Red Cell Distribution Width 20 % (10-15); White Blood Count 7.5 10^3/uL (3.5-10.8)
[2022-04-03 04:47] LABS: Calcium 8.5 mg/dL (8.6-10.3); Potassium 3.5 mmol/L (3.5-5.0); eGFR CKD-EPI 77.7 (>60)
[2022-04-03] MEDS ORDERED: Potassium Chloride LIQUID 20 MEQ/15 ML LIQUID PO ONE (06:20)
[2022-04-03] MEDS: Budesonide NEB 0.5 MG/2 ML NEB.SOLN INH SCH ×2 (07:28→21:47)
[2022-04-03] MEDS: Insulin GLARGINE 100 un/ml 10 ml VIAL SUBCUT SCH (09:32)
[2022-04-03] MEDS: Pantoprazole VIAL 40 MG VIAL IV SCH (09:32)
[2022-04-03] MEDS: Saline FLUSH-CENTRAL 10 ML SYRINGE CENT\\PICC SCH ×2 (09:33→21:28)
[2022-04-04] MEDS: Budesonide NEB 0.5 MG/2 ML NEB.SOLN INH SCH ×2 (07:10→21:40)
[2022-04-04] MEDS: Albuterol/Ipratropium NEB.SOL (2.5/0.5 MG) 3 ML NEB.SOLN INH SCH ×3 (07:10→21:39)
[2022-04-04] MEDS: Pantoprazole VIAL 40 MG VIAL IV SCH (09:47)
[2022-04-04] MEDS: Insulin GLARGINE 100 un/ml 10 ml VIAL SUBCUT SCH (09:47)
[2022-04-04] MEDS: Saline FLUSH-CENTRAL 10 ML SYRINGE CENT\\PICC SCH ×2 (09:48→21:17)
[2022-04-05 05:33] LABS: Hematocrit 32 % (42-52); Hemoglobin 10.2 g/dL (14.0-18.0); Mean Corpuscular HGB Conc 32 g/dL (31-36); Mean Corpuscular Hemoglobin 29 pg (27-31); Mean Corpuscular Volume 90 fL (80-94); Mean Platelet Volume 8.3 fL (7.4-10.4); Platelet Count 223 10^3/uL (150-450); Red Blood Count 3.56 10^6 /uL (4.18-5.48); Red Cell Distribution Width 20 % (10-15); White Blood Count 7.9 10^3/uL (3.5-10.8)
[2022-04-05 06:13] LABS: Calcium 8.5 mg/dL (8.6-10.3); Potassium 3.7 mmol/L (3.5-5.0); eGFR CKD-EPI 82.5 (>60)
[2022-04-05] MEDS: Albuterol/Ipratropium NEB.SOL (2.5/0.5 MG) 3 ML NEB.SOLN INH SCH ×3 (06:54→19:22)
[2022-04-05] MEDS: Budesonide NEB 0.5 MG/2 ML NEB.SOLN INH SCH ×2 (07:40→19:22)
[2022-04-05] MEDS: Pantoprazole VIAL 40 MG VIAL IV SCH (09:31)
[2022-04-05] MEDS: Saline FLUSH-CENTRAL 10 ML SYRINGE CENT\\PICC SCH ×2 (09:31→19:03)
[2022-04-05] MEDS: Insulin GLARGINE 100 un/ml 10 ml VIAL SUBCUT SCH (09:31)
[2022-04-05 09:47] LABS: Anisocytosis 2+; Polychromasia 1+
[2022-04-05 09:48] LABS: ABS Eosinophils 0.2 10^3/ul (0-0.6); ABS Lymphocytes 2.2 10^3/ul (1.0-4.8); ABS Monocytes 0.7 10^3/ul (0-0.8); ABS Neutrophils 4.8 10^3/ul (1.5-7.7); Eosinophil % 2.8 %; Lymphocyte % 27.4 %
[2022-04-06] MEDS: Insulin GLARGINE 100 un/ml 10 ml VIAL SUBCUT SCH (07:44)
[2022-04-06] MEDS: Saline FLUSH-CENTRAL 10 ML SYRINGE CENT\\PICC SCH ×2 (07:45→20:56)
[2022-04-06] MEDS: Albuterol/Ipratropium NEB.SOL (2.5/0.5 MG) 3 ML NEB.SOLN INH SCH ×2 (07:54→20:03)
[2022-04-06] MEDS: Budesonide NEB 0.5 MG/2 ML NEB.SOLN INH SCH ×2 (07:55→20:02)
[2022-04-06] MEDS ORDERED: Magnesium Hydroxide LIQ 30 ML UDC PO ONE (09:41)
[2022-04-06] MEDS: Potassium Chlor 20 meq TAB.ER PO SCH (10:43)
[2022-04-06] MEDS: Polyethylene Glycol 3350 17 GM PACKET PO PRN (13:44)
[2022-04-07] MEDS: Albuterol/Ipratropium NEB.SOL (2.5/0.5 MG) 3 ML NEB.SOLN INH SCH ×2 (07:41→19:16)
[2022-04-07] MEDS: Budesonide NEB 0.5 MG/2 ML NEB.SOLN INH SCH ×2 (07:41→19:16)
[2022-04-07] MEDS: Insulin GLARGINE 100 un/ml 10 ml VIAL SUBCUT SCH (08:10)
[2022-04-07] MEDS: Potassium Chlor 20 meq TAB.ER PO SCH (08:11)
[2022-04-07] MEDS: Saline FLUSH-CENTRAL 10 ML SYRINGE CENT\\PICC SCH (08:11)
[2022-04-08] MEDS: Saline FLUSH-CENTRAL 10 ML SYRINGE CENT\\PICC SCH ×3 (00:24→20:31)
[2022-04-08] MEDS: Albuterol/Ipratropium NEB.SOL (2.5/0.5 MG) 3 ML NEB.SOLN INH SCH ×2 (07:17→20:27)
[2022-04-08] MEDS: Budesonide NEB 0.5 MG/2 ML NEB.SOLN INH SCH ×2 (07:17→20:27)
[2022-04-08] MEDS: Insulin GLARGINE 100 un/ml 10 ml VIAL SUBCUT SCH (09:27)
[2022-04-08] MEDS: Potassium Chlor 20 meq TAB.ER PO SCH (09:28)
[2022-04-09] MEDS: Albuterol/Ipratropium NEB.SOL (2.5/0.5 MG) 3 ML NEB.SOLN INH SCH ×2 (07:28→18:41)
[2022-04-09] MEDS: Budesonide NEB 0.5 MG/2 ML NEB.SOLN INH SCH ×2 (07:29→18:41)
[2022-04-09] MEDS: Potassium Chlor 20 meq TAB.ER PO SCH (09:08)
[2022-04-09] MEDS: Insulin GLARGINE 100 un/ml 10 ml VIAL SUBCUT SCH (09:08)
[2022-04-09] MEDS: Saline FLUSH-CENTRAL 10 ML SYRINGE CENT\\PICC SCH ×2 (09:09→20:12)
[2022-04-10] MEDS: Albuterol/Ipratropium NEB.SOL (2.5/0.5 MG) 3 ML NEB.SOLN INH SCH ×2 (07:16→19:04)
[2022-04-10] MEDS: Budesonide NEB 0.5 MG/2 ML NEB.SOLN INH SCH ×2 (07:16→19:04)
[2022-04-10] MEDS: Saline FLUSH-CENTRAL 10 ML SYRINGE CENT\\PICC SCH ×2 (08:14→22:01)
[2022-04-10] MEDS: Potassium Chlor 20 meq TAB.ER PO SCH (08:14)
[2022-04-10] MEDS: Insulin GLARGINE 100 un/ml 10 ml VIAL SUBCUT SCH (08:14)
[2022-04-10 10:20] LABS: ABS Basophils 0.1 10^3/ul (0-0.2); ABS Eosinophils 0.3 10^3/ul (0-0.6); ABS Lymphocytes 1.9 10^3/ul (1.0-4.8); ABS Monocytes 0.6 10^3/ul (0-0.8); ABS Neutrophils 6.9 10^3/ul (1.5-7.7); Eosinophil % 3.1 %; Hematocrit 37 % (42-52); Hemoglobin 11.9 g/dL (14.0-18.0); Lymphocyte % 19.5 %; Mean Corpuscular HGB Conc 32 g/dL (31-36); Mean Corpuscular Hemoglobin 29 pg (27-31); Mean Corpuscular Volume 93 fL (80-94); Mean Platelet Volume 8.6 fL (7.4-10.4); Nucleated Red Blood Cells % 0.1; Platelet Count 253 10^3/uL (150-450); Red Blood Count 4.03 10^6 /uL (4.18-5.48); Red Cell Distribution Width 21 % (10-15); White Blood Count 9.8 10^3/uL (3.5-10.8)
[2022-04-10 10:22] LABS: ALT 13 U/L (7-52); Albumin 3.1 g/dL (3.2-5.2); Alkaline Phosphatase 68 U/L (35-149); Blood Urea Nitrogen 10 mg/dL (6-24); CO2 Carbon Dioxide 30 mmol/L (22-32); Calcium 8.8 mg/dL (8.6-10.3); Chloride 96 mmol/L (101-111); Globulin 3.1 g/dL (2-4); Glucose 116 mg/dL (70-100); Magnesium 1.9 mg/dL (1.9-2.7); Sodium 135 mmol/L (135-145); Total Protein 6.2 g/dL (6.4-8.9); eGFR CKD-EPI 93.4 (>60)
[2022-04-10 10:25] LABS: Anion Gap 9 mmol/L (2-11)
[2022-04-10 11:59] LABS: Potassium Redraw 3.9 mmol/L (3.5-5.0)
[2022-04-10] MEDS: Polyethylene Glycol 3350 17 GM PACKET PO PRN (22:00)
[2022-04-11] MEDS: Budesonide NEB 0.5 MG/2 ML NEB.SOLN INH SCH ×2 (07:39→18:45)
[2022-04-11] MEDS: Albuterol/Ipratropium NEB.SOL (2.5/0.5 MG) 3 ML NEB.SOLN INH SCH ×2 (07:39→18:45)
[2022-04-11] MEDS: Insulin GLARGINE 100 un/ml 10 ml VIAL SUBCUT SCH (08:06)
[2022-04-11] MEDS: Potassium Chlor 20 meq TAB.ER PO SCH (08:07)
[2022-04-11] MEDS: Saline FLUSH-CENTRAL 10 ML SYRINGE CENT\\PICC SCH ×2 (08:07→20:17)
[2022-04-11 20:15] LABS: Rapid COVID-19 Molecular Undetected (Undetected)
[2022-04-12] MEDS: Albuterol/Ipratropium NEB.SOL (2.5/0.5 MG) 3 ML NEB.SOLN INH SCH (07:27)
[2022-04-12] MEDS: Budesonide NEB 0.5 MG/2 ML NEB.SOLN INH SCH (07:29)
[2022-04-12] MEDS: Potassium Chlor 20 meq TAB.ER PO SCH (07:43)
[2022-04-12] MEDS: Insulin GLARGINE 100 un/ml 10 ml VIAL SUBCUT SCH (07:43)
[2022-04-12] MEDS: Saline FLUSH-CENTRAL 10 ML SYRINGE CENT\\PICC SCH (07:44)
[2022-04-12 08:01] VITALS: BP 101/76
== END 2022-04-12 09:00 | DRG 5 ==
LOC: EDBD → ED 12:29 → EDHOLD 14:37 → SUATTDRO 14:37 → ICU 16:38 → SSU 03-14 10:06 → ICU 03-19 16:23
PROVIDERS: ADMIT Internal Medicine Critical Care Medicine; ATTEND Internal Medicine